=== PATIENT | male | born 1985 | race Caucasian/White ===

== ENCOUNTER 2018-04-26 11:20 | Inpatient (IN) | payer OTHER, MEDICAID, SELFPAY ==
[2018-04-26] VITALS (16 sets, daily range): BP systolic 91–139; BP diastolic 52–75; PULSE 75–118; RESP 12–24; TEMP 36.4–38.2; O2SAT 92–100; BMI 21.2
--- NOTE | 2018-04-26 11:45 | ED.SKABFB ---
HPI - Skin/Abscess/Foreign Bdy General Chief complaint: Skin/Abscess/Foreign Body Stated complaint: ABCESS ON L SIDE Time Seen by Provider: 04/26/18 11:33 Source: patient Mode of arrival: ambulatory Limitations: no limitations History of Present Illness HPI narrative: 32-year-old male, former smoker and IV drug abuser presents with rapidly worsening abscess in his left anterior elbow over the past few days. He now can no longer flex or extend and is complaining of low-grade fever as well as nausea. He last injected IV drugs a few weeks ago but it has smoked this morning. His last oral intake was about 5:00 a.m.. He denies nausea, vomiting or diarrhea MD complaint: abscess/boil Onset (ago): day(s) Tetanus up to date: yes Location: LUE Severity: moderate Quality: aching Pain Consistency: constant Relieving factors: rest Exacerbating factors: movement Context: IVDA Associated symptoms: chills Treatments prior to arrival: none Related Data Home Medications Medication Instructions Recorded Confirmed No Known Home Medications 04/26/18 04/26/18 Allergies Allergy/AdvReac Type Severity Reaction Status Date / Time No Known Drug Allergies Allergy Verified 04/26/18 11:30 Review of Systems Constitutional Denies chills, Denies fever(s), Denies lethargy and Denies weakness Eyes Denies change in vision, Denies eye discharge, Denies irritation and Denies loss of vision ENT Ears, Nose, Mouth, and Throat: Denies change in voice, Denies neck pain and Denies sore throat Cardiovascular Denies chest pain, Denies irregular heart rhythm, Denies lightheadedness, Denies palpitations, Denies dyspnea, Denies dyspnea on exertion and Denies orthopnea Respiratory Denies cough, Denies dyspnea, Denies dyspnea on exertion and Denies wheezing Gastrointestinal Gastrointestinal: Denies abdominal pain, Denies change in bowel habits, Denies diarrhea, Denies nausea and Denies vomiting Genitourinary Denies hematuria, Denies flank pain, Denies urinary incontinence and Denies urinary urgency Musculoskeletal Denies neck pain Integumentary/Breasts Denies pruritus, Reports erythema, Denies rash, Reports skin pain, Reports skin swelling and Denies wounds Neurologic Denies confusion, Denies loss of vision and Denies weakness Psychiatric Denies anxiety, Denies confusion, Denies depression, Denies homicidal ideation and Denies suicidal ideation Endocrine Denies palpitations Hematologic/Lymphatic Denies easy bruising Allergic/Immunologic Denies wheezing PFSH Social History Smoking Status: Former smoker Social History Smoking Status: Former smoker Exam Narrative Exam Narrative: GENERAL: 32-year-old male obviously uncomfortable complaining of left elbow pain HEAD: Atraumatic. Normocephalic. No temporal or scalp tenderness. EYES: Pupils equal round and reactive. Extraocular motions intact. No scleral icterus. No injection or drainage. ENT: Nose without bleeding, purulent drainage or septal hematoma. Throat without erythema, tonsillar hypertrophy or exudate. Uvula midline. Airway patent. NECK: Trachea midline. No JVD or lymphadenopathy. Supple, nontender, no meningeal signs. CARDIOVASCULAR: Regular rate and rhythm without murmurs, gallops, or rubs. RESPIRATORY: Clear to auscultation. Breath sounds equal bilaterally. No wheezes, rales, or rhonchi. GASTROINTESTINAL: Abdomen soft, non-tender, nondistended. No hepato-splenomegaly, or palpable masses. No guarding. EXTREMITIES: Large fluctuant mass in left antecubital fossa with significant surrounding erythema and swelling. Patient is unable to flex and extend at the elbow as well as pronate or supinate. BACK: Nontender without deformity or crepitance. No flank tenderness. NEURO: AOx3. SKIN: Significant erythema without obvious abscess in antecubital fossa Initial Vital Signs Initial Vital Signs: Vital Signs Temperature 98.4 F 04/26/18 11:27 Pulse Rate 118 H 04/26/18 11:27 Respiratory Rate 24 04/26/18 11:27 Blood Pressure 110/72 04/26/18 11:27 Pulse Oximetry 98 04/26/18 11:27 Course Orders Ordered: ED Orders 04/26/18 11:45 Complete Blood Count AUTO DIFF Stat Comprehensive Metabolic Panel Stat Lactate (Lactic Acid) Stat Procalcitonin Stat 04/26/18 12:14 Blood Culture Stat 04/26/18 14:24 MR elbow LT wo/w con Stat 04/26/18 14:50 Urine Microscopic Stat Hydromorphone HCl (Dilaudid) 1 mg IV Q3H PRN PRN Reason: Pain, Severe (7-10) Stop: 04/27/18 16:51 Last Admin: 04/26/18 16:57 Dose: 1 mg Sodium Chloride (Normal Saline 0.9%) 2,245.29 mls @ 748.43 mls/hr 30 ml/kg infuse over 3 hr (2245.29 ml) IV CONT ROWENA Last Infusion: 04/26/18 16:00 Dose: 0 mls/hr Admin: 04/26/18 12:12 Dose: 748.43 mls/hr Discontinued Medications Acetaminophen (Tylenol) 975 mg PO NOW ONE Stop: 04/26/18 16:11 Last Admin: 04/26/18 16:11 Dose: 975 mg Hydromorphone HCl (Dilaudid) 1 mg IV NOW ONE Stop: 04/26/18 15:59 Last Admin: 04/26/18 16:06 Dose: 1 mg Vancomycin HCl 1,500 mg/ (Sodium Chloride) 500 mls @ 333.333 mls/hr IV NOW ONE Stop: 04/26/18 11:38 Last Infusion: 04/26/18 13:50 Dose: 0 mls/hr Admin: 04/26/18 12:13 Dose: 333.333 mls/hr Ibuprofen (Advil) 800 mg PO NOW ONE Stop: 04/26/18 16:11 Last Admin: 04/26/18 16:11 Dose: 800 mg Consultations Consultation #1: Early call to Orthopedics whom recommend MRI to determine extent of infection. Upon receipt of MRI he is seen at the bedside by Orthopedics and consented for surgical incision and drainage Vital Signs - 8 hr 04/26/18 11:27 04/26/18 14:27 04/26/18 16:08 Temperature 98.4 F 100.7 F H Pulse Rate 118 H 102 H 110 H Respiratory Rate 24 18 18 Blood Pressure 110/72 Blood Pressure [Right Arm] 129/75 122/67 Pulse Oximetry 98 96 98 04/26/18 16:11 04/26/18 16:52 04/26/18 17:31 Temperature 100.7 F H 99.7 F H 99.7 F H Pulse Rate 110 H Respiratory Rate 14 Blood Pressure Blood Pressure [Right Arm] Pulse Oximetry 99 MDM - Skin/Abscess/Foreign Bdy Medical Records Attestation: I reviewed the patient's medical records. Lab Data Attestation: I reviewed the patient's lab results. Result diagrams: 04/26/18 11:45 04/26/18 11:45 Lab Results 04/26/18 04/26/18 04/26/18 Range/Units 11:45 11:45 11:45 WBC 8.5 (4.5-11.0) X10^3/uL RBC 3.79 L (4.5-5.9) X10^6/uL Hgb 10.6 L (13.5-17.5) g/dL Hct 31.0 L (41-53) % MCV 81.7 (80-100) fL MCH 27.8 (26-34) PG MCHC 34.1 (30-36) % RDW 13.7 (11.6-14.8) % Plt Count 285 (150-400) X10^3/uL Neut % (Auto) 70.4 (50-75) % Lymph % (Auto) 12.3 L (25-40) % Collin % (Auto) 14.9 H (3-14) % Eos % (Auto) 1.8 L (2-4) % Baso % (Auto) 0.6 (0-2) % Neut # (Auto) 6000 (3225-9507) /uL Lymph # (Auto) 1000 L (5995-8949) /uL Collin # (Auto) 1300 H (0-900) /uL Eos # (Auto) 200 (0-450) /uL Baso # (Auto) 100 (0-100) /uL Sodium 134 L (137-145) mmol/L Potassium 4.0 (3.4-5.1) mmol/L Chloride 98 (98-107) mmol/L Carbon Dioxide 27 (22-32) mmol/L BUN 15 (9-20) mg/dL Creatinine 0.80 (0.66-1.25) mg/dL Estimated GFR > 60.0 (>60) mL/min BUN/Creatinine Ratio 18.8 (6-22) Glucose 117 H (70-100) mg/dL Lactate (0.7-2.1) mmol/L Calcium 8.9 (8.4-10.2) mg/dL Total Bilirubin 0.3 (0.2-1.3) mg/dL AST 29 (17-59) IU/L ALT 44 (21-72) IU/L Alkaline Phosphatase 83 (38-126) U/L Total Protein 6.8 (6.3-8.2) g/dL Albumin 3.7 (3.5-5.0) g/dL Globulin 3.1 (1.7-4.1) g/dL Albumin/Globulin Ratio 1.2 (1.0-2.8) Procalcitonin 5.61 H (<0.5) ng/mL Urine RBC (0-5/HPF) Urine WBC (0-5/HPF) Ur Squamous Epith Cells Amorphous Sediment Urine Bacteria (None) Urine Mucus (Negative) Ur Culture Indicated? 04/26/18 04/26/18 Range/Units 11:45 14:50 WBC (4.5-11.0) X10^3/uL RBC (4.5-5.9) X10^6/uL Hgb (13.5-17.5) g/dL Hct (41-53) % MCV (80-100) fL MCH (26-34) PG MCHC (30-36) % RDW (11.6-14.8) % Plt Count (150-400) X10^3/uL Neut % (Auto) (50-75) % Lymph % (Auto) (25-40) % Collin % (Auto) (3-14) % Eos % (Auto) (2-4) % Baso % (Auto) (0-2) % Neut # (Auto) (3582-4383) /uL Lymph # (Auto) (8057-6222) /uL Collin # (Auto) (0-900) /uL Eos # (Auto) (0-450) /uL Baso # (Auto) (0-100) /uL Sodium (137-145) mmol/L Potassium (3.4-5.1) mmol/L Chloride (98-107) mmol/L Carbon Dioxide (22-32) mmol/L BUN (9-20) mg/dL Creatinine (0.66-1.25) mg/dL Estimated GFR (>60) mL/min BUN/Creatinine Ratio (6-22) Glucose (70-100) mg/dL Lactate 0.6 L (0.7-2.1) mmol/L Calcium (8.4-10.2) mg/dL Total Bilirubin (0.2-1.3) mg/dL AST (17-59) IU/L ALT (21-72) IU/L Alkaline Phosphatase (38-126) U/L Total Protein (6.3-8.2) g/dL Albumin (3.5-5.0) g/dL Globulin (1.7-4.1) g/dL Albumin/Globulin Ratio (1.0-2.8) Procalcitonin (<0.5) ng/mL Urine RBC 0-1/hpf (0-5/HPF) Urine WBC 0-1/hpf (0-5/HPF) Ur Squamous Epith Cells 0-1 /hpf Amorphous Sediment 3+ Urine Bacteria Few (2-10) H (None) Urine Mucus 1+ H (Negative) Ur Culture Indicated? Cult not indicated Urine Dip Bedside Urine Glucose Negative Bedside Urine Bilirubin - Negative Bedside Urine Ketone - Negative Urine Specific [place] 1.030 Bedside Urine Occult Blood - Negative Bedside Urine pH 6.0 Bedside Urine Protein +/- 15 Bedside Urine Urobilinogen +/- 1mg Bedside Urine Nitrite - Negative Bedside Urine Leukocytes - Negative Esterase Imaging Data MRI Elbow: Radiologist's impression: [place] [address] Magnetic Resonance Report Signed Patient: MAAME RAM JMR#: [id number] : 1985Acct:[id number] Age/Sex: 32 / MDate of Service: 04/26/18 Loc: ED Accession Number: [id number] Procedure: MR elbow LT wo/w con Ordering Provider: Timoteo rFitz D.O. PROCEDURE: MR ELBOW LT WO/W CON INDICATIONS: large abscess, pre op, per Ortho TECHNIQUE: Noncontrast coronal proton density fast spin echo and T2 fast spin echo with fat saturation, coronal T1 spin echo with fat saturation, axial and sagittal T1 spin echo and T2 fast spin echo with fat saturation through the elbow. Post-contrast coronal, axial, and sagittal T1 spin echo with fat saturation through the elbow. COMPARISON: None. FINDINGS: Image quality: Severe motion artifact despite multiple attempts. This is reportedly due to severe pain at the time of the examination. Marrow signal intensity appears within normal limits. No specific evidence of osteomyelitis is seen. No fracture line identified. There is anatomic alignment. There is a large multiloculated peripherally enhancing fluid collection, which measures 3.8 x 3.2 cm in cross-sectional dimension on axial image 16 series 11. This measures approximately 4.9 cm the cephalocaudad dimension on image 21 series 12. This finding is compatible with large abscess. This abuts the biceps and brachialis muscles as well as the brachial artery at the level of the distal humerus. No definite pathologic joint effusion. There is upper arm circumferential cellulitis and diffuse superficial fascial fluid. No definite evidence of soft tissue gas. IMPRESSION: Large multiloculated abscess involving the medial antecubital fossa. Diffuse upper arm subcutaneous cellulitis. No evidence of osteomyelitis. Dictated by: Arnoldo Bledsoe M.D. on 04/26/2018 at 15:29 Approved by: Arnoldo Bledsoe M.D. on 04/26/2018 at 15:39 Discharge Plan Departure Patient Disposition: Admitted as Observation Clinical Impression: Abscess, elbow Interventions: ED Discharge Assessment Last Done: 04/26/18 17:35 Admit Date/Time: 04/26/18 16:38 Admit Provider: Robert Wilkes
--- NOTE | 2018-04-26 11:52 | ED_ITS ---
HPI - Skin/Abscess/Foreign Bdy General Chief complaint: Skin/Abscess/Foreign Body Stated complaint: ABCESS ON L SIDE Time Seen by Provider: 04/26/18 11:33 Source: patient Mode of arrival: ambulatory Limitations: no limitations History of Present Illness HPI narrative: 32-year-old male, former smoker and IV drug abuser presents with rapidly worsening abscess in his left anterior elbow over the past few days. He now can no longer flex or extend and is complaining of low-grade fever as well as nausea. He last injected IV drugs a few weeks ago but it has smoked this morning. His last oral intake was about 5:00 a.m.. He denies nausea, vomiting or diarrhea MD complaint: abscess/boil Onset (ago): day(s) Tetanus up to date: yes Location: LUE Severity: moderate Quality: aching Pain Consistency: constant Relieving factors: rest Exacerbating factors: movement Context: IVDA Associated symptoms: chills Treatments prior to arrival: none Related Data Home Medications Medication Instructions Recorded Confirmed No Known Home Medications 04/26/18 04/26/18 Allergies Allergy/AdvReac Type Severity Reaction Status Date / Time No Known Drug Allergies Allergy Verified 04/26/18 11:30 Review of Systems Constitutional Denies chills, Denies fever(s), Denies lethargy and Denies weakness Eyes Denies change in vision, Denies eye discharge, Denies irritation and Denies loss of vision ENT Ears, Nose, Mouth, and Throat: Denies change in voice, Denies neck pain and Denies sore throat Cardiovascular Denies chest pain, Denies irregular heart rhythm, Denies lightheadedness, Denies palpitations, Denies dyspnea, Denies dyspnea on exertion and Denies orthopnea Respiratory Denies cough, Denies dyspnea, Denies dyspnea on exertion and Denies wheezing Gastrointestinal Gastrointestinal: Denies abdominal pain, Denies change in bowel habits, Denies diarrhea, Denies nausea and Denies vomiting Genitourinary Denies hematuria, Denies flank pain, Denies urinary incontinence and Denies urinary urgency Musculoskeletal Denies neck pain Integumentary/Breasts Denies pruritus, Reports erythema, Denies rash, Reports skin pain, Reports skin swelling and Denies wounds Neurologic Denies confusion, Denies loss of vision and Denies weakness Psychiatric Denies anxiety, Denies confusion, Denies depression, Denies homicidal ideation and Denies suicidal ideation Endocrine Denies palpitations Hematologic/Lymphatic Denies easy bruising Allergic/Immunologic Denies wheezing PFSH Social History Smoking Status: Former smoker Social History Smoking Status: Former smoker Exam Narrative Exam Narrative: GENERAL: 32-year-old male obviously uncomfortable complaining of left elbow pain HEAD: Atraumatic. Normocephalic. No temporal or scalp tenderness. EYES: Pupils equal round and reactive. Extraocular motions intact. No scleral icterus. No injection or drainage. ENT: Nose without bleeding, purulent drainage or septal hematoma. Throat without erythema, tonsillar hypertrophy or exudate. Uvula midline. Airway patent. NECK: Trachea midline. No JVD or lymphadenopathy. Supple, nontender, no meningeal signs. CARDIOVASCULAR: Regular rate and rhythm without murmurs, gallops, or rubs. RESPIRATORY: Clear to auscultation. Breath sounds equal bilaterally. No wheezes , rales, or rhonchi. GASTROINTESTINAL: Abdomen soft, non-tender, nondistended. No hepato-splenomegaly , or palpable masses. No guarding. EXTREMITIES: Large fluctuant mass in left antecubital fossa with significant surrounding erythema and swelling. Patient is unable to flex and extend at the elbow as well as pronate or supinate. BACK: Nontender without deformity or crepitance. No flank tenderness. NEURO: AOx3. SKIN: Significant erythema without obvious abscess in antecubital fossa Initial Vital Signs Initial Vital Signs: Vital Signs Temperature 98.4 F 04/26/18 11:27 Pulse Rate 118 H 04/26/18 11:27 Respiratory Rate 24 04/26/18 11:27 Blood Pressure 110/72 04/26/18 11:27 Pulse Oximetry 98 04/26/18 11:27 Course Orders Ordered: ED Orders 04/26/18 11:45 Complete Blood Count AUTO DIFF Stat Comprehensive Metabolic Panel Stat Lactate (Lactic Acid) Stat Procalcitonin Stat 04/26/18 12:14 Blood Culture Stat 04/26/18 14:24 MR elbow LT wo/w con Stat 04/26/18 14:50 Urine Microscopic Stat Hydromorphone HCl (Dilaudid) 1 mg IV Q3H PRN PRN Reason: Pain, Severe (7-10) Stop: 04/27/18 16:51 Last Admin: 04/26/18 16:57 Dose: 1 mg Sodium Chloride (Normal Saline 0.9%) 2,245.29 mls @ 748.43 mls/hr 30 ml/kg infuse over 3 hr (2245.29 ml) IV CONT ROWENA Last Infusion: 04/26/18 16:00 Dose: 0 mls/hr Admin: 04/26/18 12:12 Dose: 748.43 mls/hr Discontinued Medications Acetaminophen (Tylenol) 975 mg PO NOW ONE Stop: 04/26/18 16:11 Last Admin: 04/26/18 16:11 Dose: 975 mg Hydromorphone HCl (Dilaudid) 1 mg IV NOW ONE Stop: 04/26/18 15:59 Last Admin: 04/26/18 16:06 Dose: 1 mg Vancomycin HCl 1,500 mg/ (Sodium Chloride) 500 mls @ 333.333 mls/hr IV NOW ONE Stop: 04/26/18 11:38 Last Infusion: 04/26/18 13:50 Dose: 0 mls/hr Admin: 04/26/18 12:13 Dose: 333.333 mls/hr Ibuprofen (Advil) 800 mg PO NOW ONE Stop: 04/26/18 16:11 Last Admin: 04/26/18 16:11 Dose: 800 mg Consultations Consultation #1: Early call to Orthopedics whom recommend MRI to determine extent of infection. Upon receipt of MRI he is seen at the bedside by Orthopedics and consented for surgical incision and drainage Vital Signs - 8 hr 04/26/18 11:27 04/26/18 14:27 04/26/18 16:08 Temperature 98.4 F 100.7 F H Pulse Rate 118 H 102 H 110 H Respiratory Rate 24 18 18 Blood Pressure 110/72 Blood Pressure [Right Arm] 129/75 122/67 Pulse Oximetry 98 96 98 04/26/18 16:11 04/26/18 16:52 04/26/18 17:31 Temperature 100.7 F H 99.7 F H 99.7 F H Pulse Rate 110 H Respiratory Rate 14 Blood Pressure Blood Pressure [Right Arm] Pulse Oximetry 99 MDM - Skin/Abscess/Foreign Bdy Medical Records Attestation: I reviewed the patient's medical records. Lab Data Attestation: I reviewed the patient's lab results. Result diagrams: 04/26/18 11:45 04/26/18 11:45 Lab Results 04/26/18 04/26/18 04/26/18 Range/Units 11:45 11:45 11:45 WBC 8.5 (4.5-11.0) X10^3/uL RBC 3.79 L (4.5-5.9) X10^6/uL Hgb 10.6 L (13.5-17.5) g/dL Hct 31.0 L (41-53) % MCV 81.7 (80-100) fL MCH 27.8 (26-34) PG MCHC 34.1 (30-36) % RDW 13.7 (11.6-14.8) % Plt Count 285 (150-400) X10^3/uL Neut % (Auto) 70.4 (50-75) % Lymph % (Auto) 12.3 L (25-40) % [place] % (Auto) 14.9 H (3-14) % Eos % (Auto) 1.8 L (2-4) % Baso % (Auto) 0.6 (0-2) % Neut # (Auto) 6000 (7122-3931) /uL Lymph # (Auto) 1000 L (8710-0028) /uL [place] # (Auto) 1300 H (0-900) /uL Eos # (Auto) 200 (0-450) /uL Baso # (Auto) 100 (0-100) /uL Sodium 134 L (137-145) mmol/L Potassium 4.0 (3.4-5.1) mmol/L Chloride 98 (98-107) mmol/L Carbon Dioxide 27 (22-32) mmol/L BUN 15 (9-20) mg/dL Creatinine 0.80 (0.66-1.25) mg/dL Estimated GFR > 60.0 (>60) mL/min BUN/Creatinine Ratio 18.8 (6-22) Glucose 117 H (70-100) mg/dL Lactate (0.7-2.1) mmol/L Calcium 8.9 (8.4-10.2) mg/dL Total Bilirubin 0.3 (0.2-1.3) mg/dL AST 29 (17-59) IU/L ALT 44 (21-72) IU/L Alkaline Phosphatase 83 (38-126) U/L Total Protein 6.8 (6.3-8.2) g/dL Albumin 3.7 (3.5-5.0) g/dL Globulin 3.1 (1.7-4.1) g/dL Albumin/Globulin Ratio 1.2 (1.0-2.8) Procalcitonin 5.61 H (<0.5) ng/mL Urine RBC (0-5/HPF) Urine WBC (0-5/HPF) Ur Squamous Epith Cells Amorphous Sediment Urine Bacteria (None) Urine Mucus (Negative) Ur Culture Indicated? 04/26/18 04/26/18 Range/Units 11:45 14:50 WBC (4.5-11.0) X10^3/uL RBC (4.5-5.9) X10^6/uL Hgb (13.5-17.5) g/dL Hct (41-53) % MCV (80-100) fL MCH (26-34) PG MCHC (30-36) % RDW (11.6-14.8) % Plt Count (150-400) X10^3/uL Neut % (Auto) (50-75) % Lymph % (Auto) (25-40) % [place] % (Auto) (3-14) % Eos % (Auto) (2-4) % Baso % (Auto) (0-2) % Neut # (Auto) (5848-9800) /uL Lymph # (Auto) (0546-7540) /uL [place] # (Auto) (0-900) /uL Eos # (Auto) (0-450) /uL Baso # (Auto) (0-100) /uL Sodium (137-145) mmol/L Potassium (3.4-5.1) mmol/L Chloride (98-107) mmol/L Carbon Dioxide (22-32) mmol/L BUN (9-20) mg/dL Creatinine (0.66-1.25) mg/dL Estimated GFR (>60) mL/min BUN/Creatinine Ratio (6-22) Glucose (70-100) mg/dL Lactate 0.6 L (0.7-2.1) mmol/L Calcium (8.4-10.2) mg/dL Total Bilirubin (0.2-1.3) mg/dL AST (17-59) IU/L ALT (21-72) IU/L Alkaline Phosphatase (38-126) U/L Total Protein (6.3-8.2) g/dL Albumin (3.5-5.0) g/dL Globulin (1.7-4.1) g/dL Albumin/Globulin Ratio (1.0-2.8) Procalcitonin (<0.5) ng/mL Urine RBC 0-1/hpf (0-5/HPF) Urine WBC 0-1/hpf (0-5/HPF) Ur Squamous Epith Cells 0-1 /hpf Amorphous Sediment 3+ Urine Bacteria Few (2-10) H (None) Urine Mucus 1+ H (Negative) Ur Culture Indicated? Cult not indicated Urine Dip Bedside Urine Glucose Negative Bedside Urine Bilirubin - Negative Bedside Urine Ketone - Negative Urine Specific [place] 1.030 Bedside Urine Occult Blood - Negative Bedside Urine pH 6.0 Bedside Urine Protein +/- 15 Bedside Urine Urobilinogen +/- 1mg Bedside Urine Nitrite - Negative Bedside Urine Leukocytes - Negative Esterase Imaging Data MRI Elbow: Radiologist's impression: [place] [address] Magnetic Resonance Report Signed Patient: MAAME RAM JMR#: [id number] : 1985Acct:[id number] Age/Sex: 32 / MDate of Service: 04/26/18 Loc: ED Accession Number: [id number] Procedure: MR elbow LT wo/w con Ordering Provider: Timoteo Fritz D.O. PROCEDURE: MR ELBOW LT WO/W CON INDICATIONS: large abscess, pre op, per Ortho TECHNIQUE: Noncontrast coronal proton density fast spin echo and T2 fast spin echo with fat saturation, coronal T1 spin echo with fat saturation, axial and sagittal T1 spin echo and T2 fast spin echo with fat saturation through the elbow. Post-contrast coronal , axial, and sagittal T1 spin echo with fat saturation through the elbow. COMPARISON: None. FINDINGS: Image quality: Severe motion artifact despite multiple attempts. This is reportedly due to severe pain at the time of the examination. Marrow signal intensity appears within normal limits. No specific evidence of osteomyelitis is seen. No fracture line identified. There is anatomic alignment. There is a large multiloculated peripherally enhancing fluid collection, which measures 3.8 x 3.2 cm in cross-sectional dimension on axial image 16 series 11. This measures approximately 4.9 cm the cephalocaudad dimension on image 21 series 12. This finding is compatible with large abscess. This abuts the biceps and brachialis muscles as well as the brachial artery at the level of the distal humerus. No definite pathologic joint effusion. There is upper arm circumferential cellulitis and diffuse superficial fascial fluid. No definite evidence of soft tissue gas. IMPRESSION: Large multiloculated abscess involving the medial antecubital fossa. Diffuse upper arm subcutaneous cellulitis. No evidence of osteomyelitis. Dictated by: Arnoldo Bledsoe M.D. on 04/26/2018 at 15:29 Approved by: Arnoldo Bledsoe M.D. on 04/26/2018 at 15:39 Discharge Plan Departure Patient Disposition: Admitted as Observation Clinical Impression: Abscess, elbow Interventions: ED Discharge Assessment Last Done: 04/26/18 17:35 Admit Date/Time: 04/26/18 16:38 Admit Provider: Robert Wilkes
[2018-04-26 12:00] LABS: Add Manual Diff / Slide Review NO; Basophils Absolute Auto 100 /uL (0-100); Basophils Percent Auto 0.6 % (0-2); Eosinophils Absolute Auto 200 /uL (0-450); Eosinophils Percent Auto 1.8 % (2-4); Hemoglobin 10.6 g/dL (13.5-17.5); Lymphocytes Absolute Auto 1000 /uL (1100-4500); Lymphocytes Percent Auto 12.3 % (25-40); Mean Corpuscular HGB Conc 34.1 % (30-36); Mean Corpuscular Hemoglobin 27.8 PG (26-34); Mean Corpuscular Volume 81.7 fL (80-100); Monocytes Absolute Auto 1300 /uL (0-900); Monocytes Percent Auto 14.9 % (3-14); Neutrophils Absolute Auto 6000 /uL (1500-7000); Neutrophils Percent Auto 70.4 % (50-75); Platelet Count 285 X10^3/uL (150-400); Red Blood Cell Count 3.79 X10^6/uL (4.5-5.9); Red Cell Distribution Width 13.7 % (11.6-14.8); White Blood Cell Count 8.5 X10^3/uL (4.5-11.0)
[2018-04-26 12:11] LABS: Alanine Aminotransferase 44 IU/L (21-72); Albumin 3.7 g/dL (3.5-5.0); Albumin Globulin Ratio 1.2 (1.0-2.8); Alkaline Phosphatase 83 U/L (38-126); Aspartate Aminotransferase 29 IU/L (17-59); BUN Creatinine Ratio 18.8 (6-22); Bilirubin Total 0.3 mg/dL (0.2-1.3); Blood Urea Nitrogen 15 mg/dL (9-20); Calcium 8.9 mg/dL (8.4-10.2); Carbon Dioxide 27 mmol/L (22-32); Chloride 98 mmol/L (98-107); Estimated Glomerular Filt Rate > 60.0 mL/min (>60); Globulin 3.1 g/dL (1.7-4.1); Glucose 117 mg/dL (70-100); HEMOLYSIS < 15 (0-50); Lactate (Lactic Acid) 0.6 mmol/L (0.7-2.1); Sodium 134 mmol/L (137-145); Total Protein 6.8 g/dL (6.3-8.2)
[2018-04-26] MEDS: SODIUM CHLORIDE 0.9% 2,245.29 ML 748.43 ML IV (12:12)
[2018-04-26] MEDS: VANCOMYCIN 1,500 MG in SODIUM CHLORIDE 0.9% 500 ML 333.333 ML IV (12:13)
[2018-04-26 12:35] LABS: Procalcitonin 5.61 ng/mL (<0.5)
--- NOTE | 2018-04-26 14:24 | DI.MRI.S_ITS ---
PROCEDURE: MR ELBOW LT WO/W CON INDICATIONS: large abscess, pre op, per Ortho TECHNIQUE: Noncontrast coronal proton density fast spin echo and T2 fast spin echo with fat saturation, coronal T1 spin echo with fat saturation, axial and sagittal T1 spin echo and T2 fast spin echo with fat saturation through the elbow. Post-contrast coronal, axial, and sagittal T1 spin echo with fat saturation through the elbow. COMPARISON: None. FINDINGS: Image quality: Severe motion artifact despite multiple attempts. This is reportedly due to severe pain at the time of the examination. Marrow signal intensity appears within normal limits. No specific evidence of osteomyelitis is seen. No fracture line identified. There is anatomic alignment. There is a large multiloculated peripherally enhancing fluid collection, which measures 3.8 x 3.2 cm in cross-sectional dimension on axial image 16 series 11. This measures approximately 4.9 cm the cephalocaudad dimension on image 21 series 12. This finding is compatible with large abscess. This abuts the biceps and brachialis muscles as well as the brachial artery at the level of the distal humerus. No definite pathologic joint effusion. There is upper arm circumferential cellulitis and diffuse superficial fascial fluid. No definite evidence of soft tissue gas. IMPRESSION: Large multiloculated abscess involving the medial antecubital fossa. Diffuse upper arm subcutaneous cellulitis. No evidence of osteomyelitis. Dictated by: Arnoldo Bledsoe M.D. on 04/26/2018 at 15:29 Approved by: Arnoldo Bledsoe M.D. on 04/26/2018 at 15:39
[2018-04-26] MEDS: HYDROMORPHONE 1 MG INJ IV (16:06)
[2018-04-26 16:08] LABS: RBC Urine 0-1/HPF (0-5/HPF); Squamous Epithelial Cell Urine 0-1 /HPF; WBC Urine 0-1/HPF (0-5/HPF)
[2018-04-26 16:09] LABS: Amorphous Sediment Urine 3+; Bacteria Urine Few (2-10); Culture Indicated Urine Cult Not Indicated; Mucus Urine 1+ (Negative)
[2018-04-26] MEDS: IBUPROFEN 400 MG TABLET 800 MG PO (16:11)
[2018-04-26] MEDS: ACETAMINOPHEN 325 MG TABLET 975 MG PO (16:11)
--- NOTE | 2018-04-26 16:46 | PM.HP.1 ---
History of Present Illness Date Patient Seen: 04/26/18 Time Patient Seen: 16:46 Chief complaint: ABCESS ON L SIDE Narrative: 32-year-old male with left arm pain. He has a history of heroin addiction. He has occasionally injected heroin, the last time was about a month ago. Still using heroin but not IV, and reports that he is tapering back. About 2 weeks ago his left arm started bothering him and feeling sore. For the past 2 days it has been extremely painful and becoming more and more swollen. He finally came into the emergency room today. He denies fevers or chills. The pain is sharp and stabbing with any active flexion of the arm or any extension past 45?. He can passively flex the arm without difficulty. He lives in [place], but his father lives up here as well as his and son are here. Patient History Social History Smoking Status: Former smoker Family & Social History Safety & Behavioral: Feels Safe in Current Yes Environment Been Physically Hurt or No Threatened By a Person Tobacco & Substance use: Smoking Status Former smoker alcohol intake frequency 0-2 drinks per day Substance Use Type heroin,IV drugs Meds Home Medications Medication Instructions Recorded Confirmed Type No Known Home Medications 04/26/18 04/26/18 History Allergies Allergy/AdvReac Type Severity Reaction Status Date / Time No Known Drug Allergies Allergy Verified 04/26/18 11:30 Review of Systems Constitutional Constitutional: Denies chills and Denies fever(s) ENT Ears, Nose, Mouth, and Throat: No lip swelling Cardiovascular Cardiovascular: Denies chest pain Respiratory Respiratory: Denies cough Gastrointestinal Gastrointestinal: Denies abdominal pain Genitourinary Genitourinary: Denies difficulty urinating Neurologic Comments: tingling in L hand when laying in MRI, but no time else Hematologic/Lymphatic Hematologic/Lymphatic: Denies easy bleeding Allergic/Immunologic Allergic/Immunologic: Denies lip swelling Exam Vital Signs (past 8 hours): - 04/26/18 11:27 04/26/18 14:27 04/26/18 16:08 Temperature 98.4 F 100.7 F H Pulse Rate 118 H 102 H 110 H Respiratory Rate 24 18 18 Blood Pressure 110/72 Blood Pressure [Right Arm] 129/75 122/67 Pulse Oximetry 98 96 98 04/26/18 16:11 Temperature 100.7 F H Pulse Rate Respiratory Rate Blood Pressure Blood Pressure [Right Arm] Pulse Oximetry Oxygen Delivery Method Room Air Const Orientation: alert and oriented x3 Resp Auscultation: clear to auscultation bilaterally Cardio Rate: regular rate Rhythm: regular rhythm Extrem Other: Left elbow - 8 cm fluctuant mass along the medial antecubital space. Mild surrounding erythema. No tracking proximally or distally. Can passively flex the arm to 135? but cannot extend past the 45 degree point. 2+ distal pulses. Intact sensation to the entire arm. Objective ECG Impression: Imaging MRI left elbow: My impression: Large superficial abscess 10 cm in size in the medial aspect of the left antecubital fossa. No extension to the joint. Labs Result Diagrams: 04/26/18 11:45 04/26/18 11:45 Labs: Laboratory Results - last 24 hr 04/26/18 04/26/18 04/26/18 11:45 11:45 11:45 WBC 8.5 RBC 3.79 L Hgb 10.6 L Hct 31.0 L MCV 81.7 MCH 27.8 MCHC 34.1 RDW 13.7 Plt Count 285 Neut % (Auto) 70.4 Lymph % (Auto) 12.[address] [place] % (Auto) 14.9 H Eos % (Auto) 1.8 L Baso % (Auto) 0.6 Neut # (Auto) 6000 Lymph # (Auto) [address] [place] # (Auto) 1300 H Eos # (Auto) 200 Baso # (Auto) 100 Sodium 134 L Potassium 4.0 Chloride 98 Carbon Dioxide 27 BUN 15 Creatinine 0.80 Estimated GFR > 60.0 BUN/Creatinine Ratio 18.8 Glucose 117 H Lactate Calcium 8.9 Total Bilirubin 0.3 AST 29 ALT 44 Alkaline Phosphatase 83 Total Protein 6.8 Albumin 3.7 Globulin 3.1 Albumin/Globulin Ratio 1.2 Procalcitonin 5.61 H Urine RBC Urine WBC Ur Squamous Epith Cells Amorphous Sediment Urine Bacteria Urine Mucus Ur Culture Indicated? 04/26/18 04/26/18 11:45 14:50 WBC RBC Hgb Hct MCV MCH MCHC RDW Plt Count Neut % (Auto) Lymph % (Auto) [place] % (Auto) Eos % (Auto) Baso % (Auto) Neut # (Auto) Lymph # (Auto) [place] # (Auto) Eos # (Auto) Baso # (Auto) Sodium Potassium Chloride Carbon Dioxide BUN Creatinine Estimated GFR BUN/Creatinine Ratio Glucose Lactate 0.6 L Calcium Total Bilirubin AST ALT Alkaline Phosphatase Total Protein Albumin Globulin Albumin/Globulin Ratio Procalcitonin Urine RBC 0-1/hpf Urine WBC 0-1/hpf Ur Squamous Epith Cells 0-1 /hpf Amorphous Sediment 3+ Urine Bacteria Few (2-10) H Urine Mucus 1+ H Ur Culture Indicated? Cult not indicated Assessment & Plan Plan: Assessment/Plan Narrative: Left elbow abscess - he has a large abscess that will require surgical debridement. Risks and benefits of surgery been discussed including but not limited to medical risk with heart attack, stroke, , continued infection, bleeding, scarring, stiffness and elbow and contracture, failure to alleviate infection, need for further surgery. We will take him to the operating room tonight.
[2018-04-26] MEDS: HYDROMORPHONE 2 MG INJ 1 MG IV ×2 (16:57→19:10)
--- NOTE | 2018-04-26 17:04 | PC.NURSE ---
Redness, swelling well beyond area of abcess. + radial pulse. Last iv drug use 1 mo ago per pt report. Admits to 'foiling'/ inhalint use of opioids @ 3am.
--- NOTE | 2018-04-26 20:17 | PM.PREOP ---
Pre-operative Note Interval Note History & Physical reviewed/Exam performed by Physician: Yes Changes to H&P: No
--- NOTE | 2018-04-26 20:17 | PM.OP.1 ---
Operative Date/Time/Diagnoses Date of procedure: 04/26/18 Time of procedure: 21:05 Pre-op diagnosis: Left arm antecubital deep tissue abscess Post-op diagnosis: same Procedure & Clinicians Procedure: Irrigation debridement of deep abscess left antecubital space Same procedure as scheduled: Yes Indications: 32-year-old male with a large abscess in the left antecubital region. It is felt that he would require irrigation and debridement. Risks and benefits of surgery discussed and appropriate consent obtained. Surgeon: Robert Wilkes Click Yes if Unassisted: Yes Anesthesia Type: General Operative Notes Findings: None Closure Type: primary Specimen(s): other (Wound culture) Applied: drain(s) Estimated Blood Loss (mL): 20 Procedure in detail: Patient is brought the operating room and intubated on the table. Attention was turned to the well-marked left arm. Preoperative antibiotics with vancomycin had already been given in the emergency room earlier. The left arm was prepped and draped in standard sterile fashion. A 4 cm longitudinal incision was made in the medial antecubital space over the abscess. Copious amounts of purulent material were released. This was cultured and sent to microbiology. There was a large thrombosed vein crossing the field and this was left alone. We bluntly explored to make sure that there was no further tracking and this matched up with the MRI. We used a Garcia to debride the deep tissue down to the muscle for the incisional debridement. The wound was then copiously irrigated with pulsatile lavage. A deep drain was placed. The superficial and skin were closed. Sterile dressing was placed. He was then extubated and brought to recovery with no complications. Complications: none Condition: stable Disposition: PACU Plan for aftercare: Inpatient for several days of IV antibiotics. Will maintain on vancomycin for now and await cultures.
--- NOTE | 2018-04-26 21:12 | SUR.OPER ---
Supine on padded OR bed, head on pillow, Right arm secured on padded arm boards at <90 degrees abduction, Left arm on large padded armboard controlled by surgeon, legs uncrossed, safety belt at thigh.
[2018-04-26] MEDS: SODIUM CHLORIDE IRRIG SOLUTION 3,000 ML, GENTAMICIN 240 MG IRR (21:20)
[2018-04-26] MEDS: HYDROMORPHONE 2 MG INJ IV (21:58)
[2018-04-26] MEDS: LACTATED RINGERS 1,000 ML 125 ML IV (22:04)
[2018-04-26] MEDS: HYDROCODONE/ACET 5/325 TABLET 1 TAB PO (22:05)
[2018-04-27 00:01] VITALS: BMI 21.2
[2018-04-27] MEDS: VANCOMYCIN 1,250 MG in SODIUM CHLORIDE 0.9% 250 ML IV ×3 (00:15→15:46)
[2018-04-27] MEDS: HYDROMORPHONE 1 MG INJ 0.2 MG IV (01:04)
--- NOTE | 2018-04-27 02:08 | PC.NURSE ---
Admitted to room 215 from PACU 3-11 shift. Oriented to his room, spouse @ the bedside. Encouraged to call for assistance & needs. Spouse reported I'll take all his valuables home WiiW with me. Will cont. POC & monitor.
[2018-04-27] MEDS: HYDROCODONE/ACET 5/325 TABLET 2 TAB PO ×5 (02:27→20:21)
[2018-04-27 02:30] VITALS: BP 110/55; PULSE 96; RESP 16; TEMP 36.6; O2SAT 97
[2018-04-27] MEDS: LACTATED RINGERS 1,000 ML 125 ML IV ×2 (07:06→15:58)
[2018-04-27 07:13] LABS: Hematocrit 30.6 % (41-53); Hemoglobin 10.4 g/dL (13.5-17.5); Mean Corpuscular HGB Conc 33.9 % (30-36); Mean Corpuscular Hemoglobin 27.8 PG (26-34); Platelet Count 288 X10^3/uL (150-400); Red Blood Cell Count 3.73 X10^6/uL (4.5-5.9); Red Cell Distribution Width 13.6 % (11.6-14.8); White Blood Cell Count 6.4 X10^3/uL (4.5-11.0)
[2018-04-27 08:00] VITALS: BP 155/71; PULSE 80; RESP 16; TEMP 36.6; O2SAT 98
--- NOTE | 2018-04-27 08:19 | P.PN_ITS ---
Subjective Date Patient Seen: 04/27/18 Time Patient Seen: 08:18 Interval history: Arm is feeling better. Still painful at the elbow Exam Vital Signs (past 8 hours): - 04/27/18 02:30 Temperature 97.9 F Pulse Rate 96 H Respiratory Rate 16 Blood Pressure 110/55 L Pulse Oximetry 97 Oxygen Delivery Method Room Air Const Orientation: alert and oriented x3 Extrem Other: Left arm -dressing clean dry intact. Drain 30 mL output overnight. arm diameter about half of what it was preoperatively. Objective Labs Result Diagrams: 04/27/18 05:18 04/26/18 11:45 Labs: Laboratory Results - last 24 hr 04/26/18 04/26/18 04/26/18 11:45 11:45 11:45 WBC 8.5 RBC 3.79 L Hgb 10.6 L Hct 31.0 L MCV 81.7 MCH 27.8 MCHC 34.1 RDW 13.7 Plt Count 285 Neut % (Auto) 70.4 Lymph % (Auto) 12.3 L [place] % (Auto) 14.9 H Eos % (Auto) 1.8 L Baso % (Auto) 0.6 Neut # (Auto) 6000 Lymph # (Auto) 1000 L [place] # (Auto) 1300 H Eos # (Auto) 200 Baso # (Auto) 100 Sodium 134 L Potassium 4.0 Chloride 98 Carbon Dioxide 27 BUN 15 Creatinine 0.80 Estimated GFR > 60.0 BUN/Creatinine Ratio 18.8 Glucose 117 H Lactate Calcium 8.9 Total Bilirubin 0.3 AST 29 ALT 44 Alkaline Phosphatase 83 Total Protein 6.8 Albumin 3.7 Globulin 3.1 Albumin/Globulin Ratio 1.2 Procalcitonin 5.61 H Urine RBC Urine WBC Ur Squamous Epith Cells Amorphous Sediment Urine Bacteria Urine Mucus Ur Culture Indicated? 04/26/18 04/26/18 04/27/18 11:45 14:50 05:18 WBC 6.4 RBC 3.73 L Hgb 10.4 L Hct 30.6 L MCV 82.0 MCH 27.8 MCHC 33.9 RDW 13.6 Plt Count 288 Neut % (Auto) Lymph % (Auto) [place] % (Auto) Eos % (Auto) Baso % (Auto) Neut # (Auto) Lymph # (Auto) [place] # (Auto) Eos # (Auto) Baso # (Auto) Sodium Potassium Chloride Carbon Dioxide BUN Creatinine Estimated GFR BUN/Creatinine Ratio Glucose Lactate 0.6 L Calcium Total Bilirubin AST ALT Alkaline Phosphatase Total Protein Albumin Globulin Albumin/Globulin Ratio Procalcitonin Urine RBC 0-1/hpf Urine WBC 0-1/hpf Ur Squamous Epith Cells 0-1 /hpf Amorphous Sediment 3+ Urine Bacteria Few (2-10) H Urine Mucus 1+ H Ur Culture Indicated? Cult not indicated Assessment & Plan Post-op Postoperative Procedures Operation Date: 04/26/18 20:00 Actual Procedures Side Surgeon p Incision and Drainage Wound/Extremity Robert Wilkes MD stable after irrigation debridement of the left arm abscess. He has gram-positive cocci and Gram-positive rods on the Gram stain. Awaiting culture results will continue on vancomycin for now. Quality VTE Deep Vein Thrombosis/Pulmonary Embolism Present on Admission: No
[2018-04-27] MEDS: DOCUSATE 100 MG CAPSULE PO ×2 (09:39→20:21)
[2018-04-27] MEDS: KETOROLAC 30 MG/ML VIAL IV ×2 (09:44→16:36)
--- NOTE | 2018-04-27 11:31 | PT.IIE ---
Current Diagnoses Cutaneous abscess of limb, unspecified (04/26/18) Surgery Performed Operation Date: 04/26/18 20:00 Actual Procedures p Incision and Drainage Wound/Extremity - Robert Wilkes MD Physical Therapy Inpatient Evaluation/Re-Eval M1 PT/OT-IP Prior Functional Status Start: 04/27/18 11:04 Freq: NEEDED Status: Active Protocol: Document 04/27/18 10:05 (Rec: 04/27/18 11:31 [email or web address]) Medical Review Prior Functional Status Medical History Reviewed Yes Diet/Fluid Consistency Regular Communication No communication deficits noted Mobility and Gait Pt was independent at home and community without using AD Activities of Daily Living and IADL's Pt was independent for all ADLs and IADLs Social History Household Members spouse family children Living Arrangements House Number of Floors (Floors) Two Floors Number of Stairs To Enter/Railing? 1STE without rails; 15steps inside of the house with L rail Home Environment Standard Height Toilet Tub/Shower Employment Status Self-Employed Additional Social History Comment Pt lives with his and son in a 2 story home in [place]. They primarily stays on main floor, second floor has a playroom only. Pt has a history of heroin addiction. He has occasionally injected heroin, the last time was about a month ago. 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 M2 PT-IP Current Condition Start: 04/27/18 11:04 Freq: NEEDED Status: Active Protocol: Document 04/27/18 10:05 (Rec: 04/27/18 11:31 [email or web address]) Physical Therapy Current Condition Current Condition Evaluation Date 04/27/18 Treatment Diagnosis Post op irrigation debridement for large abscess on L arm Onset Date 2 weeks ago Precautions Other Precautions Contact precaution M3 PT-IP Subjective Start: 04/27/18 11:04 Freq: NEEDED Status: Active Protocol: Document 04/27/18 10:05 (Rec: 04/27/18 11:31 [email or web address]) Subjective Physical Therapy Visit Type Type Initial Evaluation Visit Start Time 10:05 Visit Stop Time 10:25 Total Visit Minutes 20 Notes Pt is now on antibiotic. Per RN, there's no restrictions for his elbow from Number of GLASS LOADING EQUIPMENT TENDER Visits 0 Physical Therapy Visit Comments Patient Comments Pt agreeable to mobilize with PT Patient Goals To return home with his to return to work Therapy Pain Assessment Pain When Pain Assessed At Rest Pain Present Pain Present Pain Reported Location L arm Intensity 4 Scale Used Numeric (1 - 10) Description Dull Pain Management Techniques Apply Cold Timing of Activity with Medications M4 PT-IP Mobility and Gait Start: 04/27/18 11:04 Freq: NEEDED Status: Active Protocol: Document 04/27/18 10:05 (Rec: 04/27/18 11:31 [email or web address]) PT-Bed Mobility Assessment Supine to Sit Supine to Sit Independent Sit to Supine Sit to Supine Independent Scooting Scooting to Edge of Bed Independent Scooting Up and Down in Bed Independent PT-Transfer Assessment Sit to and From Stand Sit to and from Stand Independent Equipment Transfer Assistive Device Gait Belt Transfers Transfer Destination Bed Toilet Transfer Technique Stand Step Pivot Transfer Ability Level of Assist Independent Comments Mobility Comments Pt was in bed upon assessment. Pt was then transferred himself from supine to stand without assistance. He then went to bathroom for toileting under supervision. Pt was able to manage IV pole and lines while turning. Pt did not show signs of LOB and acute distress. Gait Assessment Gait Gait Assistance Required: Standby Assistance Distance (Feet) 300 Able to Maintain Weight Bearing Status Yes During Gait Assistive Devices Assistive Device None Gait Belt Gait Deviations General Gait Pattern Antalgic Factors Limiting Gait Function Factors Limiting Gait Function Pain Comments Gait Comments Pt amb from EOB to hallway for approx 300 feet SBA without AD. Pt did show slight L antalgic gait but he states he walked the same way for the past few months and he does know why. Pt presented a very steady gait without signs of LOB and acute distress. Stair Climbing Assessment Evaluation Level of Assist On Stairs Standby Assistance Devices Stair Climbing Assistive Devices Left Railing Technique/Endurance Stair Climbing Direction Ascend and Descend Stair Climbing Technique Step Over Step Number of Steps Climbed 3 Query Text: Stair Climbing Set # Repetitions (reps) 4 Comments Stair Climbing Comments no signs of LOB PT-Balance Assessment Sitting Balance and Reactions Static Sitting Balance Ability Normal Dynamic Sitting Balance Ability Normal Standing Balance and Reactions Static Standing Balance Ability Normal Dynamic Standing Balance Ability Normal M5 PT-IP Objective Assessments Start: 04/27/18 11:04 Freq: NEEDED Status: Active Protocol: Document 04/27/18 10:05 (Rec: 04/27/18 11:31 [email or web address]) Orientation Orientation/Cognition Level of Alertness Alert Orientation Name Age Birthday Month Date Year Day of Week Place Situation Language Function Ability No Deficits Noted Safety Awareness Understands Safety Issues Memory Description No Deficits Noted Gross Range of Motion Upper Extremity ROM Assessment Left Impaired Impairments able to fully extend from 40 degrees able to supinate and pronate 50% Lower Extremity ROM Assessment Within Functional Limits Strength Upper Extremity Strength Assessment Left Impaired Elbow 3/5 Comments Strength Comments Pt has his L elbow wrapped with yao wrap upon assessment. Slight edema at L wrist and proximal elbow Coordination Assessment Gross Coordination Gross Coordination WNL Sensation Assessment Sensation Gross Sensation Left UE Impaired Light Touch Impaired Proprioception (Position) Impaired Sensation Description Numbness Pain Comments Sensation Comments Pt states he feels slightly numb at his L hand Muscle Tone Muscle Tone WNL Yes M6 PT-IP Treatment Start: 04/27/18 11:04 Freq: NEEDED Status: Active Protocol: Document 04/27/18 10:05 (Rec: 04/27/18 11:31 [email or web address]) Physical Therapy Treatment Education Education Provided Precautions Safety M7 PT-IP Assessment and Plan Start: 04/27/18 11:04 Freq: NEEDED Status: Active Protocol: Document 04/27/18 10:05 (Rec: 04/27/18 11:31 [email or web address]) PT Summary Assessment and Plan Potential Rehabilitation Potential Excellent Status of Condition at Evaluation Evolving Summary Impairments Pain ROM Sensation Assessment Summary Pt is 32 yo male admitted to for irrigation debridement on his L arm large abscess who has a hx of heroin addiction. Pt is now post op day 1. Upon assessment, pt presented baseline mobility for functional activities without using AD. Pt demonstrated steady gait and no signs of LOB and acute distress. Pt also states Im able to rotate my arm and extend my elbow today which i was not able to for the past 2 weeks. But i do feel a bit numb on my L hand today. In my professional opinion, pt will be able to d/ c home once pt's surgical site is medically stable (Pt currently on antibiotics ). Frequency of Treatment Frequency Of Treatment Discharge Recommendations To Nursing Amount of Assist Needed Independent Discharge Recommendations PT Discharge Recommendations Home
[2018-04-27 12:00] VITALS: BP 118/82; PULSE 79; RESP 18; TEMP 36.6; O2SAT 99
--- NOTE | 2018-04-27 15:12 | CM.IDA ---
Addendum entered by Ena Gee, CONCRETE WALL GRINDER OPERATOR 04/29/18 14:59: Offered pocket book size [employer] and highlighted [facility]'s Medicaid access line. Also highlighted [facility]. DC likely Wednesday, home w/po abx per RN Lisa. JW Original Note: DCP Assessment Note: Reviewed chart. Met w/pt, explained SW role. Pt very pleasant and forthcoming throughout our conversation. Pt lives w/his in [place]. He is self employed and he and his do not have insurance. Pt says someone here at will f/u w/him re: [email or web address]. Pt explains his 6 yo son was taken into temporary custody 8 months ago by CPS, placed into the home of pt's father in law here in [place]. Pt says he and his are required to submit urine tests weekly (or monthly?) and they failed one and son was removed from their home. Pt admits to IVDU one month ago and since that time, he and his snort heroin once weekly approx 10 dollars worth. Pt says he has struggled with heroin and meth use on and off since early twenties. He had been sober for many years until he started using again approx 2 years ago. He and his met in clean and sober housing years before the of their son. Discussed prior treatment, counseling, and efforts to remain sober. 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 Pt wonders if a counselor would be helpful for him d/t childhood trauma. Strongly encouraged pt to get his Medicaid in place and call MH/Medicaid access line through [facility] to establish with ongoing close outpt counseling and possibly medication assisted treatment. Pt says he has tried suboxone in the past but it was harder to get off than the heroin. This CONCRETE WALL GRINDER OPERATOR suggested pt consider asking a counselor about anti-depressants, anti-anxiety and pt agrees this might help. Pt hopes to have full custody of his son again soon and will likely be in the [place] area for awhile attending court dates/legal steps w/ CPS. Pt aware culture results pending which will assist in determining next steps in medical POC and DCP. This CONCRETE WALL GRINDER OPERATOR following closely and will plan to provide pt w/Medicaid MH access line. Will also discuss substance abuse specific resources in this area like [facility], [facility], [place], [facility]. Following closely. DANNIELLE Negron Discharge Planning/Care Management CM Discharge Assessment Start: 04/27/18 15:03 Freq: Status: Active Protocol: Document 04/27/18 15:03 CLAIRE (Rec: 04/27/18 15:11 CLAIRE [id number]) Discharge Planning Assessment Assigned Dispatcher Chief Oil DANNIELLE Paulson DPOA/Assigned Designee Name Janet Lynch, spouse Contact Information [phone] Advance Directives? No Advance Directives on File No History Provided By Patient Prior Living Arrangements House Household Members spouse family children Type of transportation used prior to Drives own vehicle admit Independent with ADL's Yes Is patient alert and oriented? Yes Barriers to Discharge Yes Comment H/O IVDU, current heroin use weekly. Cultures pending. Insurance pending. Additional Comment Following closely as medical POC unfolds. Whiteboard Updated in Patient Room with Yes name and ext. # of Dispatcher Chief Oil Review Status In Process
[2018-04-27 16:04] VITALS: BP 149/59; PULSE 85; RESP 16; TEMP 36.4; O2SAT 100
[2018-04-27 19:16] VITALS: BP 134/89; PULSE 93; RESP 16; TEMP 36.7; O2SAT 97
[2018-04-27] MEDS: MAGNESIUM HYDROXIDE 30 ML UDC PO (20:21)
[2018-04-28 01:08] LABS: Vancomycin Trough 8.3 ug/mL (10-20)
[2018-04-28 01:15] VITALS: BP 108/61; PULSE 88; RESP 16; TEMP 36.6; O2SAT 96
[2018-04-28] MEDS: VANCOMYCIN 1,250 MG in SODIUM CHLORIDE 0.9% 250 ML IV (01:16)
[2018-04-28] MEDS: VANCOMYCIN TROUGH 1 REQUEST MISC (01:21)
[2018-04-28 03:23] VITALS: BP 103/57; PULSE 79; RESP 16; TEMP 36.3; O2SAT 98
--- NOTE | 2018-04-28 04:33 | PC.NURSE ---
Director Of Corporate Sales Note: 0030: Vanco trough drawn and sent. Dose held pending results. IV in place in rt forearm with LR infusing at 125cc/hr. Dressing to lt arm is cdi, with yao wrap intact and clean over dressing; TERESA intact and compressed, with small amount serosanguinous drainage. Sig. other is at bedside.
[2018-04-28] MEDS: HYDROCODONE/ACET 5/325 TABLET 2 TAB PO ×3 (09:00→20:37)
[2018-04-28 09:22] VITALS: BP 118/69; PULSE 74; RESP 18; TEMP 36.4; O2SAT 100
[2018-04-28] MEDS: DOCUSATE 100 MG CAPSULE PO ×2 (10:35→20:38)
[2018-04-28] MEDS: VANCOMYCIN 1,500 MG in SODIUM CHLORIDE 0.9% 500 ML IV (10:36)
[2018-04-28] MEDS: KETOROLAC 30 MG/ML VIAL IV ×2 (10:47→17:52)
--- NOTE | 2018-04-28 10:51 | PM.PNPO.1 ---
Subjective Date Patient Seen: 04/28/18 Time Patient Seen: 10:51 Interval history: Feeling better today Exam Vital Signs (past 8 hours): - 04/28/18 03:23 04/28/18 09:22 Temperature 97.3 F L 97.6 F Pulse Rate 79 74 Respiratory Rate 16 18 Blood Pressure 103/57 L 118/69 Pulse Oximetry 98 100 Oxygen Delivery Method Room Air Const Orientation: alert and oriented x3 Extrem Other: Dressing changed this morning with a little bit of drainage on the dressing. 10 cc output from the drain last shift Objective Labs Result Diagrams: 04/27/18 05:18 04/26/18 11:45 Labs: Laboratory Results - last 24 hr 04/28/18 00:30 Vancomycin Trough 8.3 L cultures growing but too early to determine Assessment & Plan Post-op Postoperative Procedures Operation Date: 04/26/18 20:00 Actual Procedures Side Surgeon p Incision and Drainage Wound/Extremity Robert Wilkes MD Continue with IV antibiotics. Wait for cultures and final sensitivities. Probably discharge the drain tomorrow if it dries up Quality VTE Deep Vein Thrombosis/Pulmonary Embolism Present on Admission: No
[2018-04-28 13:35] VITALS: BP 152/80; PULSE 97; RESP 18; TEMP 36.5; O2SAT 100
[2018-04-28 15:59] VITALS: BP 136/76; PULSE 83; RESP 16; TEMP 36.7; O2SAT 98
[2018-04-28] MEDS: VANCOMYCIN 1,500 MG in SODIUM CHLORIDE 0.9% 500 ML 300 ML IV (17:53)
[2018-04-28 19:12] VITALS: BP 121/69; PULSE 82; RESP 16; TEMP 36.4; O2SAT 100
[2018-04-29] VITALS: BP 141/50; PULSE 98; RESP 18; TEMP 36.4; O2SAT 99
[2018-04-29] MEDS: HYDROCODONE/ACET 5/325 TABLET 2 TAB PO ×4 (00:16→20:22)
--- NOTE | 2018-04-29 01:54 | PC.NURSE ---
Addendum entered by Jose Alfredo Jackson R.N. 04/29/18 03:15: 0300: Dressing to lt elbow found falling off. Dressing changed with telfa over incision and Kirlex roll, with coban over Kirlex. No drainage or redness noted at incision or TERESA insertion site. Original Note: Minister Assistant Note: 0030: Awake, resting in bed with lt arm elevated on pillows. Vital signs stable. Dressing to lt arm intact, with TERESA drain intact and compressed. Small amt serosanguinous drainage in TERESA. IV in place in rt forearm. at bedside. Pt having pain in lt elbow: medicated with 2 Vicodin.
[2018-04-29] MEDS: VANCOMYCIN 1,500 MG in SODIUM CHLORIDE 0.9% 500 ML 300 ML IV (02:47)
[2018-04-29 04:42] VITALS: BP 113/60; PULSE 95; RESP 18; TEMP 36.4; O2SAT 98
--- NOTE | 2018-04-29 09:08 | P.PN_ITS ---
Subjective Date Patient Seen: 04/29/18 Time Patient Seen: 09:05 Interval history: Hospital day 4, postop day 3 following left elbow antecubital abscess I and D by Dr. Wilkes. Patient states he is feeling better today. Still has drain in place with 30 mL drainage in the last 24 hr. Wound culture is still pending. Blood cultures negative x2. He is on IV vancomycin. He is taking [place] 5/325 mg 2 tabs q.4h. Exam Vital Signs (past 8 hours): - 04/29/18 04:42 Temperature 97.5 F L Pulse Rate 95 H Respiratory Rate 18 Blood Pressure 113/60 Pulse Oximetry 98 Oxygen Delivery Method Room Air Oxygen Flow Rate 0 Narrative Exam Narrative: Left arm. Dressing to the elbow area is dry without drainage or inflammation. Small amount of serous drainage noted in the Hemovac. Inspector And Mender is strong. Good pulses and sensation and. Objective Labs Result Diagrams: 04/27/18 05:18 04/26/18 11:45 Assessment & Plan Post-op Postoperative Procedures Operation Date: 04/26/18 20:00 Actual Procedures Side Surgeon p Incision and Drainage Wound/Extremity MD Dr. Chung Luther would like to have less than 20 mL drainage and his Hemovac per shift before DC drain. Will keep the drain in today. Waiting on final culture results to determine post hospital antibiotic. Quality VTE Deep Vein Thrombosis/Pulmonary Embolism Present on Admission: No
[2018-04-29 09:45] VITALS: BP 127/69; PULSE 112; RESP 18; TEMP 36.4; O2SAT 99
[2018-04-29 10:06] LABS: Vancomycin Trough 18.4 ug/mL (10-20)
[2018-04-29] MEDS: DOCUSATE 100 MG CAPSULE PO ×2 (10:27→20:19)
[2018-04-29] MEDS: VANCOMYCIN 1,500 MG in SODIUM CHLORIDE 0.9% 500 ML 250 ML IV (10:27)
[2018-04-29] MEDS: VANCOMYCIN TROUGH 1 REQUEST MISC (10:27)
[2018-04-29 13:45] VITALS: BP 118/64; PULSE 81; RESP 18; TEMP 36.7; O2SAT 97
--- NOTE | 2018-04-29 13:45 | PM.PNPO.1 ---
Subjective Date Patient Seen: 04/29/18 Time Patient Seen: 13:45 Interval history: He is doing well. Exam Vital Signs (past 8 hours): - 04/29/18 09:45 Temperature 97.6 F Pulse Rate 112 H Respiratory Rate 18 Blood Pressure 127/69 Pulse Oximetry 99 Oxygen Delivery Method Room Air Oxygen Flow Rate 0 Extrem Other: Swelling and arm decreasing. 10 mL over the last shift at output from drain Objective Labs Result Diagrams: 04/27/18 05:18 04/26/18 11:45 Labs: Laboratory Results - last 24 hr 04/29/18 09:36 Vancomycin Trough 18.4 Cultures growing strep hemolytic sensitivities pending tomorrow Assessment & Plan Post-op Postoperative Procedures Operation Date: 04/26/18 20:00 Actual Procedures Side Surgeon p Incision and Drainage Wound/Extremity Robert Wilkes MD can come off MRSA precautions. Continue IV antibiotics through tomorrow and weight sensitivities and discharge home on oral antibiotics. Probably discharge drain tomorrow. Quality VTE Deep Vein Thrombosis/Pulmonary Embolism Present on Admission: No
[2018-04-29 16:00] VITALS: BP 122/76; PULSE 83; RESP 20; TEMP 37; O2SAT 98
[2018-04-29] MEDS: VANCOMYCIN 1,500 MG in SODIUM CHLORIDE 0.9% 500 ML IV (17:49)
[2018-04-29 20:00] VITALS: BP 146/66; PULSE 96; RESP 20; TEMP 36.5; O2SAT 146
[2018-04-30 00:15] VITALS: BP 120/85; PULSE 89; RESP 16; TEMP 36.6; O2SAT 100
[2018-04-30] MEDS: HYDROCODONE/ACET 5/325 TABLET 2 TAB PO ×3 (00:37→13:33)
--- NOTE | 2018-04-30 01:05 | PC.NURSE ---
Patient is alert and oriented. Breath sounds CTA with RA sat of 99%. HRR. Denies nausea. BT present and abdomen is soft. Denies dysuria, frequency or urgency. Independent with mobility. Dressing to left elbow is CDI; TERESA is compressed and intact with serosanguinous drainage noted in bulb. Refusing SCD's. States pain is 4/10 so medicated with Vicodin. Fall risk score is low.
[2018-04-30] MEDS: VANCOMYCIN 1,500 MG in SODIUM CHLORIDE 0.9% 500 ML IV (02:09)
[2018-04-30] MEDS: SODIUM CHLORIDE 0.9% FLUSH 10 ML IV ×2 (02:09→08:26)
[2018-04-30] MEDS: DOCUSATE 100 MG CAPSULE PO (08:23)
[2018-04-30 09:00] VITALS: BP 124/65; PULSE 86; RESP 16; TEMP 36.4; O2SAT 98
--- NOTE | 2018-04-30 09:41 | PM.DS.1 ---
History of Present Illness Date Patient Seen: 04/30/18 Time Patient Seen: 09:41 Chief complaint: ABCESS ON L SIDE Narrative: Hospital day 5, postop day 4 following left elbow abscess I and D by Dr. Wilkes. Patient had been receiving IV vancomycin. Culture notes heavy growth Strep mitis/Strep oralis. Sensitive at all except erythromycin and tetracycline. Hemovac drain notes 5-10 mL per shift. Patient progressing well. Discharge Providers Date of admission: 04/26/18 16:38 Consults: 04/26/18 21:46 Consult to Discharge Planning Routine Comment: Consult to Physical Therapy Evaluate & Treat Comment: Physician Instructions: Evaluate and Treat Consult to Respiratory Therapy Evaluate & Treat Comment: Physician Instructions: Evaluate and treat Discharge provider: Dez Tucker PA-C Discharge Date: 04/30/18 Summary Discharge Diagnosis: Status post left elbow abscess I and D Hospital Course: Patient brought to hospital on 04/26/2018 for above noted surgery. He remained stable postoperatively. Treated with IV vancomycin until culture results are final. Patient was changed to oral antibiotic on postop day 4 and discharged home. Status at Discharge Cognitive/behavioral status at discharge: Alert, oriented no acute distress. Functional status at discharge: independent ambulation Overall status at discharge: patient is back to baseline Time Spent with Patient Less than 30 minutes Exam Vital Signs (past 8 hours): - 04/30/18 09:00 Temperature 97.6 F Pulse Rate 86 Respiratory Rate 16 Blood Pressure 124/65 Pulse Oximetry 98 Oxygen Delivery Method Room Air Oxygen Flow Rate 0 Narrative Exam Narrative: Left arm. Dressing intact without drainage or inflammation. Hemovac in place with minimal drainage. Good pulses and sensation to the hand. Good ROM of elbow. Objective Labs Result Diagrams: 04/27/18 05:18 04/26/18 11:45 Labs: Laboratory Results - last 24 hr 04/29/18 09:36 Vancomycin Trough 18.4 Discharge Plan Discharge Plan Discharge Problem: Abscess, elbow Patient Disposition: Home Discharge Med Rec/Prescriptions Prescriptions: New hydrocodone-acetaminophen 5-325 mg Tablet 1 tab PO Q4H PRN (Reason: Pain, Mild (1-3)) Qty: 15 RF: 0 amoxicillin 500 mg tablet 500 mg PO QID Qty: 60 RF: 0 No Action No Known Home Medications RF: 0 Follow up/Referrals: Robert Wilkes MD [Physician] - (Follow up with Dr. Wilkes in 10-14 days.) Provider Discharge Instructions Diet: Diet as Tolerated Activity: Ovoid forceful use of left arm. Skin/Wound/Dressing Care Report to your healthcare provider any signs of infection, such as:: chills, fever, night sweats, increased pain, unusual drainage and unusual redness Dressing: Keep elbow dressing clean and dry. Discharge Data Attending Provider: Robert Wilkes Admit Date/Time: 04/26/18 16:38 Quality VTE Deep Vein Thrombosis/Pulmonary Embolism Present on Admission: No
--- NOTE | 2018-04-30 13:45 | CM.DPC ---
DCP Discharge Home Per Ortho PA, pt's drain has been discontinued and IV now d/c and pt switching to oral meds and pt is medically stable to d/c home with no identified discharge planning needs. Previous SW already provided pt with community resources. Plan: Patient to d/c home today via POV on oral medications and community resources provided. No further SW needs at this time. DANNIELLE Archuleta
== END 2018-04-30 13:50 | disposition home or self-care (01) | DRG 383 ==
LOC: ED 16:20 → AC 16:55
PROVIDERS: Admitting Provider Orthopaedic Surgery; Emergency Provider Emergency Medicine; Visit Provider Orthopaedic Surgery
PROC: 0JBH0ZZ Excision of Left Lower Arm Subcutaneous Tissue and Fascia, Open Approach (ICD-10-PCS; principal; 2018-04-26 20:00)
DX: L02.414 Cutaneous abscess of left upper limb (principal); F11.20 Opioid dependence, uncomplicated; Z87.891 Personal history of nicotine dependence; B95.4 Other streptococcus as the cause of diseases classified elsewhere
CPT/HCPCS: 36415; 36591; 73223; 80053; 80202; 81003; 81015; 83605; 84145; 85025; 85027; 87040; 87070; 87075; 87077; 87186; 87205; 96361; 96365; 96366; 96375; 97161; 97530; 99284; A9579; J1170; J1885; J2405; J2704

== ENCOUNTER 2018-06-10 22:19 | Inpatient (IN) | payer OTHER, MEDICAID, SELFPAY ==
[2018-06-10 23:02] VITALS: BP 100/63; PULSE 139; RESP 16; TEMP 37.7; O2SAT 100; BMI 19.2
[2018-06-10 23:20] VITALS: TEMP 38.5
[2018-06-10 23:25] LABS: Bacteria Urine None Seen
[2018-06-10 23:36] VITALS: BP 91/45; PULSE 125; RESP 15; O2SAT 99
--- NOTE | 2018-06-10 23:37 | DI.RAD.S_ITS ---
PROCEDURE: XR CHEST 1V INDICATIONS: suspected sepsis TECHNIQUE: One view of the chest was acquired. COMPARISON: None. FINDINGS: Surgical changes and devices: None. Lungs and pleura: There is infiltrate and consolidation in the left upper lobe. No pleural effusions or pneumothorax. Mediastinum: Mediastinal contours appear normal. Heart size is normal. Bones and chest wall: No suspicious bony lesions. Overlying soft tissues appear unremarkable. IMPRESSION: Left upper lobe pneumonia. Dictated by: Alex Adams M.D. on 06/11/2018 at 9:35 Approved by: Alex Adams M.D. on 06/11/2018 at 9:40
[2018-06-10 23:39] LABS: RBC Urine 1-5/HPF (0-5/HPF); Squamous Epithelial Cell Urine None Seen; WBC Urine 1-5/HPF (0-5/HPF)
[2018-06-10 23:40] LABS: Culture Indicated Urine Specimen Cultured
[2018-06-10 23:43] LABS: Influenza A and B by PCR Rapid Negative (Negative)
[2018-06-10] MEDS: SODIUM CHLORIDE 0.9% 2,041.17 ML 680.39 ML IV (23:47)
[2018-06-10 23:48] VITALS: TEMP 38.5
[2018-06-10 23:48] LABS: Add Manual Diff / Slide Review NO; Basophils Absolute Auto 100 /uL (0-100); Basophils Percent Auto 0.5 % (0-2); Eosinophils Absolute Auto 100 /uL (0-450); Eosinophils Percent Auto 1.1 % (2-4); Hematocrit 33.1 % (41-53); Hemoglobin 11.1 g/dL (13.5-17.5); Lymphocytes Absolute Auto 600 /uL (1100-4500); Lymphocytes Percent Auto 5.9 % (25-40); Mean Corpuscular HGB Conc 33.4 % (30-36); Mean Corpuscular Hemoglobin 27.2 PG (26-34); Mean Corpuscular Volume 81.2 fL (80-100); Monocytes Absolute Auto 900 /uL (0-900); Monocytes Percent Auto 9.1 % (3-14); Neutrophils Absolute Auto 8700 /uL (1500-7000); Neutrophils Percent Auto 83.4 % (50-75); Platelet Count 177 X10^3/uL (150-400); Red Blood Cell Count 4.08 X10^6/uL (4.5-5.9); Red Cell Distribution Width 15.4 % (11.6-14.8); White Blood Cell Count 10.4 X10^3/uL (4.5-11.0)
[2018-06-10] MEDS: ACETAMINOPHEN 325 MG TABLET 650 MG PO (23:48)
--- NOTE | 2018-06-10 23:50 | PC.NURSE ---
Pt c/o generalized weakness and multiple swollen and painful joints (Feet, L index finger, L shoulder).
[2018-06-10 23:58] LABS: Alanine Aminotransferase 36 IU/L (21-72); Albumin 3.2 g/dL (3.5-5.0); Albumin Globulin Ratio 0.9 (1.0-2.8); Alkaline Phosphatase 133 U/L (38-126); Aspartate Aminotransferase 24 IU/L (17-59); BUN Creatinine Ratio 17.8 (6-22); Bilirubin Total 1.1 mg/dL (0.2-1.3); Blood Urea Nitrogen 32 mg/dL (9-20); Calcium 8.5 mg/dL (8.4-10.2); Carbon Dioxide 23 mmol/L (22-32); Chloride 92 mmol/L (98-107); Estimated Glomerular Filt Rate 43.4 mL/min (>60); Globulin 3.4 g/dL (1.7-4.1); Glucose 123 mg/dL (70-100); HEMOLYSIS < 15 (0-50); Lipase < 10 U/L (23-300); Potassium 3.1 mmol/L (3.4-5.1); Sodium 129 mmol/L (137-145); Total Protein 6.6 g/dL (6.3-8.2)
[2018-06-11] VITALS (16 sets, daily range): BP systolic 78–148; BP diastolic 39–96; PULSE 91–119; RESP 13–25; TEMP 36.4–37.6; O2SAT 92–100; BMI 19.2
--- NOTE | 2018-06-11 | DI.CT.S_ITS ---
PROCEDURE: CT ABDOMEN PELVIS WO CON INDICATIONS: abdominal, flank pain TECHNIQUE: Non contrast, 5 mm thick sections acquired from the diaphragms to the symphysis. 5 mm coronal and sagittal reformats were performed. For radiation dose reduction, the following was used: automated exposure control, adjustment of mA and/or kV according to patient size. COMPARISON: [facility], CR, XR CHEST 1V, 06/10/2018, 23:56. FINDINGS: Image quality: Excellent. ABDOMEN: Lung bases: Multiple lung nodules are present in lower lobes bilaterally. Heart size is normal. Solid organs: Liver and spleen are enlarged. Possible small gravel gallstones. Pancreas is normal in size. Spleen is normal in size. No adrenal nodules. Both kidneys are normal in size, without hydronephrosis or nephrolithiasis. Peritoneum and bowel: Bowel loops demonstrate normal wall thickness and caliber. No free fluid or air. Nodes and vessels: Mildlt enlarged retroperitoneal lymph nodes are present measuring up to 1 cm in short axis. Aorta and inferior vena cava are normal in size. Miscellaneous: No ventral hernias. PELVIS: Genitourinary: Bladder wall thickness is normal. There is a small amount of free fluid. Miscellaneous: No inguinal hernias. Slightly enlarged inguinal lymph nodes are seen bilaterally measuring up to 1.1 cm in short axis. Bones: No suspicious bony lesions. No vertebral body compression fractures. IMPRESSION: 1. Multiple pulmonary nodules bilaterally. Differential diagnoses include infectious, inflammatory and neoplastic processes. Recommend clinical correlation. 2. Hepatosplenomegaly. 3. Mild retroperitoneal and bilateral inguinal lymphadenopathy. 4. Question tiny gallstones stones. Ultrasound may be helpful. 5. A small amount of free fluid. 6. No renal stone or hydronephrosis. No CT findings to explain flank pain. Dictated by: Alex Adams M.D. on 06/11/2018 at 9:05 Approved by: Alex Adams M.D. on 06/11/2018 at 20:29
[2018-06-11 00:24] LABS: INR 1.3 (0.9-1.3); PTT Partial Thromboplastin Tim 26 SECONDS (26.4-36.2); Prothrombin Time 15.6 SECONDS (10.1-12.7)
--- NOTE | 2018-06-11 00:30 | PC.NURSE ---
Dr Doherty aware of BP drop.
--- NOTE | 2018-06-11 00:30 | ED.MALEGU ---
HPI - Male Genitourinary General Chief complaint: Urogenital-Male Stated complaint: Body hurts,lwr back/kidney pain,thinks infection Time Seen by Provider: 06/10/18 23:38 Source: patient Mode of arrival: ambulatory Limitations: no limitations History of Present Illness HPI Narrative: Patient is a 32-year-old male here for evaluation of 2-3 days worsening body aches, fevers, joint pain. No specific trauma. Patient is a IV drug user. States that the last time that he injected himself was 37 days ago however has smoked both heroin and methamphetamine within the past week. Patient states that overall he does not feel very well. Related Data Home Medications Medication Instructions Recorded Confirmed No Known Home Medications 04/26/18 06/11/18 Allergies Allergy/AdvReac Type Severity Reaction Status Date / Time No Known Drug Allergies Allergy Verified 06/11/18 02:00 Review of Systems Review of Systems ROS Unobtainable: All systems reviewed & are unremarkable except as noted in HPI and below Constitutional Reports body ache(s), Reports fatigue and Reports fever(s) Cardiovascular Denies chest pain and Denies dyspnea Respiratory Denies dyspnea Gastrointestinal Gastrointestinal: Denies abdominal pain and Denies change in bowel habits Musculoskeletal Comments: Left shoulder pain, left elbow pain and swelling, swelling to his right index finger, Integumentary/Breasts Denies lesions and Denies rash Neurologic Denies behavioral changes Psychiatric Denies behavioral changes Endocrine Reports fatigue Hematologic/Lymphatic Denies easy bleeding and Denies easy bruising Allergic/Immunologic Reports system reviewed and no additional complaints, except as docu and Denies urticaria PFSH Medical History Drug abuse (Acute) Social History household members: spouse, family and children Smoking Status: Former smoker Social History household members: spouse, family and children Smoking Status: Former smoker Exam Initial Vital Signs Initial Vital Signs: Vital Signs Temperature 99.8 F H 06/10/18 23:02 Pulse Rate 139 H 06/10/18 23:02 Respiratory Rate 16 06/10/18 23:02 Blood Pressure 100/63 06/10/18 23:02 Pulse Oximetry 100 06/10/18 23:02 Const General: No acute distress and ill appearing Orientation: alert, awake and oriented x3 HENMT Head: normal to inspection and normocephalic Eyes Eyelids: eyelids normal Pupils: PERRL EOM: EOM intact bilaterally Resp Effort & Inspection: normal respiratory effort Auscultation: clear to auscultation bilaterally Cardio Rate: tachycardic Rhythm: regular rhythm Heart Sounds: no murmurs Pulses: radial pulses present GI Inspection: non-distended Palpation: soft, No firm and No tender Back/Spine/Pelvis Back: CVA tenderness (Bilateral) Skin Lesions: lesions noted Rashes: rash noted Neuro General: alert, awake and oriented x3 Cognition: normal cognition Speech: speech normal Extrem Other: Patient with tenderness to palpation left shoulder however does have range of motion in that shoulder. Patient does have swelling to the left ankle and warmth however full range of motion of the left ankle. Swelling to the right index finger. Psych Appearance: grossly normal and well kempt Scores GCS [place] coma scale eye opening: Spontaneous [place] coma scale verbal response: Orientated [place] coma scale motor response: Obey commands [place] coma scale total score: 15 Course Orders Ordered: ED Orders 06/10/18 23:08 Influenza A and B by PCR Rapid Stat Urine Culture Stat Urine Microscopic Stat 06/10/18 23:30 Complete Blood Count AUTO DIFF Stat Comprehensive Metabolic Panel Stat Lactate (Lactic Acid) Stat Lipase Stat Partial Thromboplastin Time Stat Procalcitonin Stat Prothrombin Time INR Stat 06/10/18 23:37 XR chest 1V Stat 06/10/18 23:53 Blood Culture Stat 06/11/18 00:48 Blood Culture Stat 06/11/18 01:06 C-Reactive Protein Quant Stat Erythrocyte Sedimentation Rate Stat 06/11/18 04:53 Consult to Tester Waste Disposal Leakage Routine Discontinued Medications Acetaminophen (Tylenol) 650 mg PO NOW ONE Stop: 06/10/18 23:39 Last Admin: 06/10/18 23:48 Dose: 650 mg Sodium Chloride (Normal Saline 0.9%) 2,041.17 mls @ 680.39 mls/hr 30 ml/kg infuse over 3 hr (2041.17 ml) IV NOW ONE Stop: 06/11/18 02:38 Last Infusion: 06/11/18 02:07 Dose: 999 mls/hr Infusion: 06/11/18 02:00 Dose: 999 mls/hr Infusion: 06/11/18 01:08 Dose: 200 mls/hr Admin: 06/10/18 23:47 Dose: 680.39 mls/hr Ceftriaxone Sodium/Dextrose (Rocephin) 1 gm in 50 mls @ 100 mls/hr IV NOW ONE Stop: 06/11/18 00:41 Last Admin: 06/11/18 00:50 Dose: Not Given Cefepime HCl 2 gm/ Sodium (Chloride) 100 mls @ 200 mls/hr IV NOW ONE Stop: 06/11/18 00:40 Last Infusion: 06/11/18 01:40 Dose: 0 mls/hr Admin: 06/11/18 01:06 Dose: 200 mls/hr Vancomycin HCl 2,000 mg/ (Sodium Chloride) 500 mls @ 250 mls/hr IV NOW ONE Stop: 06/11/18 00:43 Last Infusion: 06/11/18 02:07 Dose: 0 mls/hr Admin: 06/11/18 02:04 Dose: 250 mls/hr Vital Signs - 8 hr 06/10/18 23:02 06/10/18 23:20 06/10/18 23:36 Temperature 99.8 F H 101.3 F H Pulse Rate 139 H 125 H Respiratory Rate 16 15 Blood Pressure 100/63 Blood Pressure [Left Arm] 91/45 L Pulse Oximetry 100 99 06/10/18 23:48 06/11/18 00:30 06/11/18 01:07 Temperature 101.3 F H 98.7 F Pulse Rate 118 H Respiratory Rate 25 H Blood Pressure Blood Pressure [Left Arm] 94/39 L Pulse Oximetry 97 06/11/18 01:23 06/11/18 02:01 06/11/18 02:33 Temperature 98.3 F 97.9 F Pulse Rate 119 H 108 H 114 H Respiratory Rate 24 13 16 Blood Pressure 88/39 L 108/46 L Blood Pressure [Left Arm] 78/52 L Pulse Oximetry 95 96 MDM - Male Genitourinary Lab Data Attestation: I reviewed the patient's lab results. Result diagrams: 06/10/18 23:30 06/10/18 23:30 Lab Results 06/10/18 06/10/18 06/10/18 Range/Units 23:08 23:08 23:30 WBC 10.4 (4.5-11.0) X10^3/uL RBC 4.08 L (4.5-5.9) X10^6/uL Hgb 11.1 L (13.5-17.5) g/dL Hct 33.1 L (41-53) % MCV 81.2 (80-100) fL MCH 27.2 (26-34) PG MCHC 33.4 (30-36) % RDW 15.4 H (11.6-14.8) % Plt Count 177 (150-400) X10^3/uL Neut % (Auto) 83.4 H (50-75) % Lymph % (Auto) 5.9 L (25-40) % [place] % (Auto) 9.1 (3-14) % Eos % (Auto) 1.1 L (2-4) % Baso % (Auto) 0.5 (0-2) % Neut # (Auto) 8700 H (0631-6224) /uL Lymph # (Auto) 600 L (9804-2115) /uL [place] # (Auto) 900 (0-900) /uL Eos # (Auto) 100 (0-450) /uL Baso # (Auto) 100 (0-100) /uL ESR (0-15) MM/HR PT (10.1-12.7) SECONDS INR (0.9-1.3) APTT (26.4-36.2) SECONDS Sodium (137-145) mmol/L Potassium (3.4-5.1) mmol/L Chloride (98-107) mmol/L Carbon Dioxide (22-32) mmol/L BUN (9-20) mg/dL Creatinine (0.66-1.25) mg/dL Estimated GFR (>60) mL/min BUN/Creatinine Ratio (6-22) Glucose (70-100) mg/dL Lactate (0.7-2.1) mmol/L Calcium (8.4-10.2) mg/dL Total Bilirubin (0.2-1.3) mg/dL AST (17-59) IU/L ALT (21-72) IU/L Alkaline Phosphatase (38-126) U/L C-Reactive Protein (<1.0) mg/dL Total Protein (6.3-8.2) g/dL Albumin (3.5-5.0) g/dL Globulin (1.7-4.1) g/dL Albumin/Globulin Ratio (1.0-2.8) Lipase (23-300) U/L Procalcitonin (<0.5) ng/mL Urine RBC 1-5/hpf (0-5/HPF) Urine WBC 1-5/hpf (0-5/HPF) Ur Squamous Epith Cells None seen Urine Bacteria None seen (None) Ur Culture Indicated? Specimen cultured Influenza A & B (PCR) Negative (Negative) 06/10/18 06/10/18 06/10/18 Range/Units 23:30 23:30 23:30 WBC (4.5-11.0) X10^3/uL RBC (4.5-5.9) X10^6/uL Hgb (13.5-17.5) g/dL Hct (41-53) % MCV (80-100) fL MCH (26-34) PG MCHC (30-36) % RDW (11.6-14.8) % Plt Count (150-400) X10^3/uL Neut % (Auto) (50-75) % Lymph % (Auto) (25-40) % [place] % (Auto) (3-14) % Eos % (Auto) (2-4) % Baso % (Auto) (0-2) % Neut # (Auto) (3146-4885) /uL Lymph # (Auto) (1247-5726) /uL [place] # (Auto) (0-900) /uL Eos # (Auto) (0-450) /uL Baso # (Auto) (0-100) /uL ESR (0-15) MM/HR PT 15.6 H (10.1-12.7) SECONDS INR 1.3 (0.9-1.3) APTT 26 L (26.4-36.2) SECONDS Sodium 129 L (137-145) mmol/L Potassium 3.1 L (3.4-5.1) mmol/L Chloride 92 L (98-107) mmol/L Carbon Dioxide 23 (22-32) mmol/L BUN 32 H (9-20) mg/dL Creatinine 1.80 H (0.66-1.25) mg/dL Estimated GFR 43.4 L (>60) mL/min BUN/Creatinine Ratio 17.8 (6-22) Glucose 123 H (70-100) mg/dL Lactate (0.7-2.1) mmol/L Calcium 8.5 (8.4-10.2) mg/dL Total Bilirubin 1.1 (0.2-1.3) mg/dL AST 24 (17-59) IU/L ALT 36 (21-72) IU/L Alkaline Phosphatase 133 H (38-126) U/L C-Reactive Protein (<1.0) mg/dL Total Protein 6.6 (6.3-8.2) g/dL Albumin 3.2 L (3.5-5.0) g/dL Globulin 3.4 (1.7-4.1) g/dL Albumin/Globulin Ratio 0.9 L (1.0-2.8) Lipase < 10 L (23-300) U/L Procalcitonin 2.38 H (<0.5) ng/mL Urine RBC (0-5/HPF) Urine WBC (0-5/HPF) Ur Squamous Epith Cells Urine Bacteria (None) Ur Culture Indicated? Influenza A & B (PCR) (Negative) 06/10/18 06/10/18 06/10/18 Range/Units 23:30 23:30 23:30 WBC (4.5-11.0) X10^3/uL RBC (4.5-5.9) X10^6/uL Hgb (13.5-17.5) g/dL Hct (41-53) % MCV (80-100) fL MCH (26-34) PG MCHC (30-36) % RDW (11.6-14.8) % Plt Count (150-400) X10^3/uL Neut % (Auto) (50-75) % Lymph % (Auto) (25-40) % [place] % (Auto) (3-14) % Eos % (Auto) (2-4) % Baso % (Auto) (0-2) % Neut # (Auto) (8105-9010) /uL Lymph # (Auto) (2453-8933) /uL [place] # (Auto) (0-900) /uL Eos # (Auto) (0-450) /uL Baso # (Auto) (0-100) /uL ESR 40 H (0-15) MM/HR PT (10.1-12.7) SECONDS INR (0.9-1.3) APTT (26.4-36.2) SECONDS Sodium (137-145) mmol/L Potassium (3.4-5.1) mmol/L Chloride (98-107) mmol/L Carbon Dioxide (22-32) mmol/L BUN (9-20) mg/dL Creatinine (0.66-1.25) mg/dL Estimated GFR (>60) mL/min BUN/Creatinine Ratio (6-22) Glucose (70-100) mg/dL Lactate 1.0 (0.7-2.1) mmol/L Calcium (8.4-10.2) mg/dL Total Bilirubin (0.2-1.3) mg/dL AST (17-59) IU/L ALT (21-72) IU/L Alkaline Phosphatase (38-126) U/L C-Reactive Protein 39.0 H (<1.0) mg/dL Total Protein (6.3-8.2) g/dL Albumin (3.5-5.0) g/dL Globulin (1.7-4.1) g/dL Albumin/Globulin Ratio (1.0-2.8) Lipase (23-300) U/L Procalcitonin (<0.5) ng/mL Urine RBC (0-5/HPF) Urine WBC (0-5/HPF) Ur Squamous Epith Cells Urine Bacteria (None) Ur Culture Indicated? Influenza A & B (PCR) (Negative) Urine Dip Bedside Urine Glucose Negative Bedside Urine Bilirubin + 1 Bedside Urine Ketone - Negative Urine Specific [place] 1.020 Bedside Urine Occult Blood +/- Bedside Urine pH 5.5 Bedside Urine Protein ++ 100 Bedside Urine Urobilinogen 1+ 2mg Bedside Urine Nitrite + Positive Bedside Urine Leukocytes + 70 Esterase Imaging Data Chest x-ray: Attestation: I personally reviewed and interpreted this imaging study as follows: My impression: Bilateral patchy infiltrates however no focal pneumonia Normal size MDM Narrative Medical decision making narrative: Patient tachycardic and febrile upon arrival. Has a normal white blood cell count and normal lactate however elevated procalcitonin elevated ESR, elevated CRP. Urinalysis is nitrate positive however urine microscopic shows no white blood cells. With his CVA tenderness this could represent pyelonephritis especially in the setting of a elevated creatinine however in a situation with a IV drug abuser and fever and multiple joint pain and swelling I have a high concern for endocarditis. Considered septic joint however he does have range of motion of these joints and when he states that he has pain he states that it is not ?in the joint ?3 sets of blood cultures were obtained. 2 g vancomycin and 2 g cefepime ordered. Cefepime would cover if this turns out to be just pyelonephritis. He was given 30 cc/kilos of fluids. His fever improved with Tylenol and his heart rate improved with IV fluids. He did have borderline blood pressures with systolics in the 80s and 90s and the maps in the 50s however he was mentating without any problems. Second IV was started. Did not feel the need to start vasopressor medication. Discussed the case with the night hospitalist who will accept the patient. Discussed the admission with the patient who expressed understanding and agreement with plan. Discharge Plan Departure Patient Disposition: Admitted As Inpatient Clinical Impression: Endocarditis Qualifiers: Endocarditis type: unspecified Chronicity: unspecified Qualified Code(s): I38 - Endocarditis, valve unspecified Urinary tract infection Qualifiers: Urinary tract infection type: acute cystitis Hematuria presence: without hematuria Qualified Code(s): N30.00 - Acute cystitis without hematuria Discharge Date/Time: 06/11/18 02:07 Interventions: ED Discharge Assessment Last Done: 06/11/18 02:01 Admit Date/Time: 06/11/18 01:20 Admit Provider: Eleazar Branham
[2018-06-11 00:38] LABS: Procalcitonin 2.38 ng/mL (<0.5)
[2018-06-11] MEDS: CEFEPIME 2 GM in SODIUM CHLORIDE 0.9% 100 ML 200 ML IV ×3 (01:06→23:40)
[2018-06-11 01:43] LABS: Erythrocyte Sedimentation Rate 40 MM/HR (0-15)
[2018-06-11] MEDS: VANCOMYCIN 2,000 MG in SODIUM CHLORIDE 0.9% 500 ML 250 ML IV (02:04)
--- NOTE | 2018-06-11 02:35 | PC.NURSE ---
Pt arrived from ED via stretcher at approx 0250. A/O, able to independently trans from stretcher to bed. IVF infusing per orders at 680/hr. Vanco infusion to be infused once bolus is complete. Oriented to room and call system. Pt verbalized he will call for needs.
--- NOTE | 2018-06-11 05:35 | P.HP_ITS ---
History of Present Illness Date Patient Seen: 06/11/18 Time Patient Seen: 05:35 Chief complaint: Body hurts,lwr back/kidney pain,thinks infection Narrative: The patient is a 32-year-old male who presented to the ED out of concern for generalized malaise, myalgia and fever. Symptom onset is sudden, initially noted 5-6 days ago, progressively worsening. At that time developed sudden onset of fever and generalized body aches. Fever has been constant, in the 100-102 range. Patient has been treating febrile state with OTC Aleve 2 tablets every 4-6 hour. Additional symptoms include: right flank pain, joint inflammation (particularly fingers,toes,knees), and pleurisy. Inflammatory / erythema localized to distal extremities. Left knee with a non- tender lesion. Denies chest pain; but notes pleurisy. No dizziness, lightheadedness, or syncopal events. No hemoptysis. Urine output is decreased and concentrated. Notes constipation and right flank pain. No recent URI illness , strep pain, or GI symptoms. no trauma to the abdomen or torso. Patient is known to have a history of IV drug use. Methamphetamine (infrequently) and heroin. Last injected used 37 days ago. Currently continues to use recreational substances via inhalation route. Last use 1 week ago , heroin, proximally 2 gm. patient reports being on Suboxone, but unable to provide dose. Patient was hospitalized 04/26 through 04/30, for a deep abscess in the left antecubital region. Required irrigation and debridement on 04/26/[address] Wilkes. Postoperatively started on vancomycin. Culture results revealed growth of Strep mitis / Strep oralis. Sensitive to all antibiotics except erythromycin and tetracycline. Patient was treated with a 3 day course of IV vancomycin. On day 4 (day of discharged) was changed to oral amoxicillin. Instructed to take 500 mg QID for 15 days. Finished 13 of 15 days. PMH: IV drug use, polysubstance abuse, left anticubital abscess, h/o bacteremia PSH: I/D of antecubital abscess ED Work-UP WBC 10.4 HGB 11.1 PLT 177 NA 129 K 3.1 CL 92 CA 8.5 ALB 3.2 CO2 23 BUN 32 CR 1.8 AST 24 ALT 36 Alk Phos 133 Lipase < 10 Lactate 1.0 PCT 2.38 ESR 40 CRP 39 influnza A/B negative UA + nitrite (communicated by ED physician, unable to verify in record) Patient History Medical History Drug abuse (Acute) Social History household members: spouse, family and children Smoking Status: Former smoker Family & Social History Family History Mother No known health problems Father No known health problems Social History: household members spouse,family,children Prior Living Arrangements House Safety & Behavioral: Feels Safe in Current Yes Environment Been Physically Hurt or No Threatened By a Person Suicidal Ideation Description None Suicide Plan Description No Plan Tobacco & Substance use: Tobacco type e-cigarettes,smokeless tobacco,cannabis/ marijuana Smoking Status Former smoker alcohol intake frequency a few times a month Substance Use Type heroin,IV drugs,methamphetamine Meds Home Medications Medication Instructions Recorded Confirmed Type No Known Home Medications 04/26/18 06/11/18 History Allergies Allergy/AdvReac Type Severity Reaction Status Date / Time No Known Drug Allergies Allergy Verified 06/11/18 02:00 Review of Systems Review of Systems All systems reviewed & are unremarkable except as noted in HPI and below Exam Vital Signs (past 8 hours): - 06/10/18 23:02 06/10/18 23:20 06/10/18 23:36 Temperature 99.8 F H 101.3 F H Pulse Rate 139 H 125 H Respiratory Rate 16 15 Blood Pressure 100/63 Blood Pressure [Left Arm] 91/45 L Pulse Oximetry 100 99 06/10/18 23:48 06/11/18 00:30 06/11/18 01:07 Temperature 101.3 F H 98.7 F Pulse Rate 118 H Respiratory Rate 25 H Blood Pressure Blood Pressure [Left Arm] 94/39 L Pulse Oximetry 97 06/11/18 01:23 06/11/18 02:01 06/11/18 02:33 Temperature 98.3 F 97.9 F Pulse Rate 119 H 108 H 114 H Respiratory Rate 24 13 16 Blood Pressure 88/39 L 108/46 L Blood Pressure [Left Arm] 78/52 L Pulse Oximetry 95 96 06/11/18 05:30 Temperature Pulse Rate 115 H Respiratory Rate Blood Pressure 103/58 L Blood Pressure [Left Arm] Pulse Oximetry 100 Oxygen Delivery Method Room Air Narrative Exam Narrative: patient in apparent distress and discomfort alert and oriented x3, no focal neurological deficits NC / AT; gaze conjugate, LUIS, EOMI, sclera anicteric; no conjunctiva was splinter hemorrhage, external ears normal, hearing acuity intact external nose with obvious deformity, no epistaxis; oropharynx w/ dry and inflammed mucosa CTA, diminished breath sounds in the bases bilaterally, no pleural rub, pleurisy per patient's report S1-S2, no S3, no murmur Generalized muscle pain on palpation throughout Joint pain w/ inflammation, particularly fingers, toes, knees left knee with non-tender erythematous lesion, edema, no effusion Objective Labs Result Diagrams: 06/11/18 06:34 06/11/18 06:34 Labs: Laboratory Results - last 24 hr 06/10/18 06/10/18 06/10/18 23:08 23:08 23:30 WBC 10.4 RBC 4.08 L Hgb 11.1 L Hct 33.1 L MCV 81.2 MCH 27.2 MCHC 33.4 RDW 15.4 H Plt Count 177 Neut % (Auto) 83.4 H Lymph % (Auto) 5.9 L [place] % (Auto) 9.1 Eos % (Auto) 1.1 L Baso % (Auto) 0.5 Neut # (Auto) 8700 H Lymph # (Auto) 600 L [place] # (Auto) 900 Eos # (Auto) 100 Baso # (Auto) 100 ESR PT INR APTT Sodium Potassium Chloride Carbon Dioxide BUN Creatinine Estimated GFR BUN/Creatinine Ratio Glucose Lactate Calcium Total Bilirubin AST ALT Alkaline Phosphatase C-Reactive Protein Total Protein Albumin Globulin Albumin/Globulin Ratio Lipase Procalcitonin Urine RBC 1-5/hpf Urine WBC 1-5/hpf Ur Squamous Epith Cells None seen Urine Bacteria None seen Ur Culture Indicated? Specimen cultured Influenza A & B (PCR) Negative 06/10/18 06/10/18 06/10/18 23:30 23:30 23:30 WBC RBC Hgb Hct MCV MCH MCHC RDW Plt Count Neut % (Auto) Lymph % (Auto) [place] % (Auto) Eos % (Auto) Baso % (Auto) Neut # (Auto) Lymph # (Auto) [place] # (Auto) Eos # (Auto) Baso # (Auto) ESR PT 15.6 H INR 1.3 APTT 26 L Sodium 129 L Potassium 3.1 L Chloride 92 L Carbon Dioxide 23 BUN 32 H Creatinine 1.80 H Estimated GFR 43.4 L BUN/Creatinine Ratio 17.8 Glucose 123 H Lactate Calcium 8.5 Total Bilirubin 1.1 AST 24 ALT 36 Alkaline Phosphatase 133 H C-Reactive Protein Total Protein 6.6 Albumin 3.2 L Globulin 3.4 Albumin/Globulin Ratio 0.9 L Lipase < 10 L Procalcitonin 2.38 H Urine RBC Urine WBC Ur Squamous Epith Cells Urine Bacteria Ur Culture Indicated? Influenza A & B (PCR) 06/10/18 06/10/18 06/10/18 23:30 23:30 23:30 WBC RBC Hgb Hct MCV MCH MCHC RDW Plt Count Neut % (Auto) Lymph % (Auto) [place] % (Auto) Eos % (Auto) Baso % (Auto) Neut # (Auto) Lymph # (Auto) [place] # (Auto) Eos # (Auto) Baso # (Auto) ESR 40 H PT INR APTT Sodium Potassium Chloride Carbon Dioxide BUN Creatinine Estimated GFR BUN/Creatinine Ratio Glucose Lactate 1.0 Calcium Total Bilirubin AST ALT Alkaline Phosphatase C-Reactive Protein 39.0 H Total Protein Albumin Globulin Albumin/Globulin Ratio Lipase Procalcitonin Urine RBC Urine WBC Ur Squamous Epith Cells Urine Bacteria Ur Culture Indicated? Influenza A & B (PCR) Assessment & Plan Assessment & Plan narrative: Acute kidney injury (sCr 1.8), present on admission Baseline 0.8 - UA dipstick negative, communicated by ED to be positive for nitrites, will repeat UA with micro and culture is indicated Acute abdominal pain / flank pain, present on admission no leukocytosis or lactate elevation - CT A/P w/o contrast Elevated inflammatory markers, ESR 40 CRP 39 PCT 2.39 DDx: endocarditis, acute glomerulonephritis, vasculitis Risk factors: IV drug user, recent surgical procedure, - blood cultures, troponin, UA - obtain UA, to evaluate for hematuria, proteinuria, RBC casts or pyuria given SHANNON / degree of renal involvement - EKG Stat - echo, may need a ANGELA to assess for vegetation - chest x-ray pending Hypovolemia Na 132 Cl 92 - Received IVF bolus per sepsis protocol in the ED - resume IV fluids, NS w/ 20 KCL at 125 ml/hr - replete e-lyte deficiencies - CMP this am, BMP at noon Normocytic Normochromic Anemia - Trend Hgb - Repeat CBC this morning Full Code; is the surrogate decision maker Quality VTE Deep Vein Thrombosis/Pulmonary Embolism Present on Admission: No
--- NOTE | 2018-06-11 06:46 | PC.NURSE ---
ACCESS COORDINATOR hospitalist ordered an NPO diet but stated that the patient can drink.
[2018-06-11 06:49] LABS: Hematocrit 30.2 % (41-53); Hemoglobin 10.1 g/dL (13.5-17.5); Mean Corpuscular HGB Conc 33.5 % (30-36); Mean Corpuscular Hemoglobin 27.1 PG (26-34); Platelet Count 175 X10^3/uL (150-400); Red Blood Cell Count 3.73 X10^6/uL (4.5-5.9); Red Cell Distribution Width 15.1 % (11.6-14.8); White Blood Cell Count 10.7 X10^3/uL (4.5-11.0)
[2018-06-11] MEDS: SODIUM CHLORIDE 0.9% 1,000 ML 100 ML IV (06:51)
[2018-06-11 07:03] LABS: Alanine Aminotransferase 31 IU/L (21-72); Albumin 2.5 g/dL (3.5-5.0); Albumin Globulin Ratio 0.8 (1.0-2.8); Alkaline Phosphatase 109 U/L (38-126); Aspartate Aminotransferase 19 IU/L (17-59); BUN Creatinine Ratio 19.3 (6-22); Blood Urea Nitrogen 29 mg/dL (9-20); Calcium 7.9 mg/dL (8.4-10.2); Carbon Dioxide 25 mmol/L (22-32); Chloride 97 mmol/L (98-107); Estimated Glomerular Filt Rate 53.6 mL/min (>60); Glucose 106 mg/dL (70-100); HEMOLYSIS < 15 (0-50); Potassium 2.9 mmol/L (3.4-5.1); Sodium 132 mmol/L (137-145); Total Protein 5.5 g/dL (6.3-8.2)
[2018-06-11] MEDS: ACETAMINOPHEN 325 MG TABLET 650 MG PO (07:03)
[2018-06-11 07:14] LABS: Troponin I < 0.012 ng/mL (0.01-0.034)
[2018-06-11 07:16] LABS: Appearance Urine UA SL CLOUDY; Bilirubin Urine UA NEGATIVE (NEGATIVE); Color Urine UA YELLOW; Glucose Urine UA NEGATIVE (Negative); Ketones Urine UA NEGATIVE (NEGATIVE); Leukocyte Esterase Urine UA NEGATIVE (NEGATIVE); Nitrite Urine UA NEGATIVE (Negative); Occult Blood Urine UA 1+ (Negative); Protein Urine UA TRACE (Negative); Specific Gravity Urine UA <=1.005 (1.000-1.035); pH Urine UA 5.5 (4.5-8.0)
--- NOTE | 2018-06-11 07:32 | DI.ECHO.S_ITS ---
[facility]---------+ [facility] +---------+ : : [address] : : : : [id number] : : : : Phone: [phone] Echocardiogram Report + + :Name: MAAME RAM Study Date: 06/11/2018 Height: 74 in : :[facility] Exam Location: [facility] Weight: 220 lb : : Gender: Male BSA: 2.3 m2 : :: 1985 Age: 32 yrs BP: 104/56 mmHg: :Reason For Study: Pleurisy/ endocarditis/ SOB : :Ordering Physician: Kaiser : :Hospitalist Performed By: Medina Page : :Referring: JESSE JOE : + + Interpretation Summary The patient was in extreme discomfort and had trouble tolerating the exam. The left ventricle is borderline dilated but left ventricular systolic function is normal without focal wall motion abnormalities with the ejection fraction visually estimated to be 55-60%. Diastolic function could not be accurately assessed due to tachycardia. The right ventricle is at the upper limits of normal in size but systolic function is normal. The right ventricular systolic pressure is estimated to be at least 27 mmHg based on an estimated right atrial pressure of 3 mm Hg. Both atria are mildly dilated. Tricuspid leaflets are mildly thickened but opened well without any obvious tricuspid valve vegetation. There is mild tricuspid regurgitation but no other significant valvular heart disease. Specifically, there is no obvious valvular vegetation identified on this exam. Consider ANGELA if there is a high degree of clinical suspicion for endocarditis with positive blood cultures and stigmata of endocarditis and clinically appropriate. Procedure: A two-dimensional transthoracic echocardiogram with color flow and Doppler was performed. The study quality was technically adequate. There is no prior echocardiogram noted for this patient. The patient was in sinus tachycardia with heart rates between 95-112 bpm during the exam. Left Ventricle: The left ventricle is borderline dilated. There is normal left ventricular wall thickness. Left ventricular systolic function is normal without focal wall motion abnormalities. The ejection fraction is estimated to be 55-60%. Diastolic function could not be accurately assessed due to tachycardia. Right Ventricle: The right ventricle is at the upper limits of normal in size. The right ventricular systolic function is normal. Atria: Both atria are mildly dilated. There is no Doppler evidence for an interatrial shunt. Mitral Valve: The mitral valve is normal in structure and function. There is no vegetation seen on the mitral valve. There is trace mitral regurgitation. Aortic Valve: The aortic valve is grossly normal. The aortic valve is slightly calcified. The aortic valve opens well. There is no obvious aortic valvular vegetation. No aortic regurgitation is present. Tricuspid Valve: Tricuspid leaflets are thickened. There is no obvious tricuspid valve vegetation. There is mild tricuspid regurgitation. The right ventricular systolic pressure is estimated to be at least 27 mmHg based on an estimated right atrial pressure of 3 mm Hg. Pulmonic Valve: The pulmonic valve is not well visualized. There is a trace or physiologic amount of pulmonic regurgitation. There is no other significant valvular heart disease. There is no obvious valvular vegetation identified on this exam. Consider ANGELA if there is a high degree of clinical suspicion for endocarditis and clinically appropriate. Great Vessels: The aortic root is normal size. The ascending aorta could not be visualized. The pulmonary is not well visualized. The IVC is of normal diameter and collapses greater than 50% with a sniff. This suggests a low right atrial pressure of 3 mm Hg. Pericardium/ Pleura There is no pericardial effusion. There is no pleural effusion. MMode/2D Measurements & Calculations LVIDd: 5.8 cm Ao root diam: 3.2 cm LVIDs: 4.4 cm FS: 24.4 % EPSS: 0.72 cm IVSd: 0.85 cm LVPWd: 0.68 cm LV jha. diameter/BSA (cm/m^2): 2.6 LV sys. diameter/BSA (cm/m^2): 1.9 LA A2 area: 22.5 cm2 RA long axis: 5.0 cm LA A4 area: 22.4 cm2 RA area: 21.4 cm2 LA length (vol): 5.1 cm RA vol: 78.1 ml LA vol: 83.8 ml RA : 34.5 ml/m2 LA vol index: 37.0 ml/m2 IVC diam: 2.0 cm RVD1 (basal): 4.2 cm Doppler Measurements & Calculations Ao V2 max: 130.6 cm/sec LVOT Max Jef: 112.9 cm/sec Ao V2 mean: 97.3 cm/sec LV V1 max P.1 mmHg Ao max P.8 mmHg LV V1 VTI: 19.0 cm Ao mean P.1 mmHg sev ratio: 0.80 Ao V2 VTI: 23.7 cm TR max jef: 242.8 cm/sec MV V2 mean: 64.7 cm/sec TR max P.6 mmHg MV mean P.0 mmHg PA V2 max: 64.3 cm/sec MV V2 VTI: 17.2 cm PA V2 mean: 43.2 cm/sec PA mean P.84 mmHg PA Accel Time: 0.09 sec Reading Physician:MARIA ELENA
[2018-06-11 07:37] LABS: Anisocytosis 1+; Neutrophils Absolute Manual 9416 /uL (3000-5900); Total Cells Counted 100
[2018-06-11 07:38] LABS: Dohle Bodies 2+; Toxic Granulation Present
[2018-06-11 07:53] LABS: Bacteria Urine Moderate (10-30); Culture Indicated Urine Specimen Cultured; RBC Urine 1-5/HPF (0-5/HPF); WBC Urine 0-1/HPF (0-5/HPF)
[2018-06-11] MEDS: HYDROMORPHONE 0.5 MG INJ IV (07:58)
[2018-06-11] MEDS: BISACODYL 10 MG SUPP PR (08:08)
[2018-06-11 08:37] LABS: Procalcitonin 1.88 ng/mL (<0.5)
[2018-06-11] MEDS: KCL 20 MEQ IN NS 1,000 ML 125 MEQ IV ×2 (09:31→20:35)
[2018-06-11] MEDS: VANCOMYCIN 1,000 MG/200 ML FROZ.PIGGY 200 MG IV ×2 (09:31→16:17)
[2018-06-11] MEDS: HEPARIN 5,000 UNIT/ML VIAL 5000 UNIT SUBCUT ×2 (09:31→20:35)
[2018-06-11 12:10] LABS: Enterococcus species Not Detected (Not Detect); Listeria monocytogenes Not Detected (Not Detect); Staphylococcus species Detected (Not Detect); Streptococcus species Not Detected (Not Detect)
[2018-06-11 12:11] LABS: Acinetobacter baumannii Not Detected (Not Detect); Candida albicans Not Detected (Not Detect); Candida glabrata Not Detected (Not Detect); Candida krusei Not Detected (Not Detect); Candida parapsilosis Not Detected (Not Detect); Candida tropicalis Not Detected (Not Detect); E. coli Not Detected (Not Detect); Enterobacter cloacae complex Not Detected (Not Detect); Enterobacteriaceae species Not Detected (Not Detect); Haemophilus influenzae Not Detected (Not Detect); Methicillin-resistant gene Detected (Not Detect); Neisseria meningitidis Not Detected (Not Detect); Proteus species Not Detected (Not Detect); Pseudomonas aeruginosa Not Detected (Not Detect); Serratia marcescens Not Detected (Not Detect); Streptococcus agalactiae (Gr B Not Detected (Not Detect); Streptococcus pneumonia Not Detected (Not Detect); Streptococcus pyogenes (Gr A) Not Detected (Not Detect)
--- NOTE | 2018-06-11 15:52 | CM.DANOTE ---
DCP/Assessment: Reviewed chart. Patient is a 32yr old male admitted to [facility] with generalized weakness and fever. No PCP listed. Primary payor is 1)[employer] 2)Medicaid. Met with patient and spouse/Janet at bedside. Patient alert and oriented during assessment but in obvious discomfort. Patient reports that he was visiting family in area when he started to get sick. Patient and spouse reside in [place], [place]. Patient reports that he is I with ADL's at baseline. Spoke with Dr. Patel whom reports that she is going to try to transfer patient to higher level of care. Blood cultures show patient with MRSA in blood. Patient admits to using illegal substances specifically heroin. Patient reports that he last used approximately 1 week ago. Patient does not think he is going through detox. Patient has been on suboxene in the past for treatment of heroin addiction. Patient and spouse both deny need for community resources for substance abuse. Patient aware that he most likely will be transferred. Patient prefers to head to facility towards [facility]. Patient resides in [place] and would like to be closer to home. RN/Charge made aware of patient's request. Both patient and spouse made aware that first facility with open bed will be considered. Patient aware and agreeable. P: Anticipate transfer to higher level of care. CM team to continue to follow. DANNIELLE Arshad Discharge Planning/Care Management Advanced directive, confirm from FAMILY Start: 06/11/18 04:54 Freq: Q24H Status: Active Protocol: Document 06/11/18 04:54 [facility] (Rec: 06/11/18 10:21 [facility] [id number]) Advance Directive, confirm on record Time 10:15 Person contacted patient Copy received No CM Discharge Assessment Start: 06/11/18 15:50 Freq: Status: Active Protocol: Document 06/11/18 15:50 [facility] (Rec: 06/11/18 15:52 [facility] [id number]) Discharge Planning Assessment Assigned Rotary Driller DANNIELLE Arshad Contact Information Janet Lynch (spouse) Advance Directives? No Advance Directives on File No History Provided By Patient Significant Other Prior Living Arrangements House Household Members spouse family children Type of transporation used prior to Drives own vehicle admit Independent with ADL's Yes Is patient alert and oriented? Yes Comment H/O IVDU, current heroin use weekly. Cultures pending. Insurance pending. Discharge Plan Transfer to Higher Level of Care Additional Comment Following closely as medical POC unfolds. Whiteboard Updated in Patient Room with Yes name and ext. # of Rotary Driller Review Status In Process Next Review Type Continued Stay Review
[2018-06-11] MEDS: HYDROCODONE/ACET 5/325 TABLET 1 TAB PO ×2 (16:00→23:51)
[2018-06-11] MEDS: OXYCODONE IR 5 MG TABLET PO (20:36)
[2018-06-11] MEDS: GABAPENTIN 300 MG CAPSULE PO (20:36)
[2018-06-11] MEDS: CALCIUM CARBONATE 500 MG TAB PO (23:40)
[2018-06-12] VITALS (11 sets, daily range): BP systolic 109–125; BP diastolic 43–72; PULSE 106–119; RESP 18–20; TEMP 36.6–38.3; O2SAT 96–100
[2018-06-12] MEDS: VANCOMYCIN 1,000 MG/200 ML FROZ.PIGGY 200 MG IV ×3 (01:28→16:25)
[2018-06-12 01:58] LABS: Urine Amphetamines Positive (Negative); Urine Cocaine Positive (Negative); Urine MDMA Positive (Negative); Urine Methamphetamines Positive (Negative); Urine Morphine/Opi cutoff 2000 Positive (Negative); Urine Phencyclidine Positive (Negative); Urine Tetrahydrocannabinol Positive (Negative)
[2018-06-12 01:59] LABS: Urine Barbiturates Negative (Negative); Urine Benzodiazepines Negative (Negative); Urine Methadone Negative (Negative)
[2018-06-12 02:00] LABS: Urine Oxycodone Positive (Negative); Urine Tricyclic Antidepressant Positive (Negative)
--- NOTE | 2018-06-12 02:11 | PC.NURSE ---
Patient's came to visit at 0110. Patient's was informed of the contact precautions and educated on the necessary PPE doning. The patient complained of severe pain 7/10 with a heart rate from 111-115 at 0100 and appeared restless and grimacing. I entered the room with a second RN Steph Wright at 0120 and the patient was sleeping and snoring but was arousable to voice. I notified JUDD Branham of the patient's status after his had entered the room and she ordered a urine drug toxicology. Urine toxicology collected from the emergency department on admission (see toxicology for results). JUDD Branham was called to view the results of the urine toxicology screen.
[2018-06-12] MEDS: HYDROCODONE/ACET 5/325 TABLET 1 TAB PO ×2 (03:29→08:55)
[2018-06-12] MEDS: KCL 20 MEQ IN NS 1,000 ML 125 MEQ IV ×2 (05:46→14:46)
[2018-06-12 06:44] LABS: Add Manual Diff / Slide Review NO; Basophils Absolute Auto 100 /uL (0-100); Basophils Percent Auto 0.7 % (0-2); Eosinophils Absolute Auto 200 /uL (0-450); Eosinophils Percent Auto 1.1 % (2-4); Hematocrit 28.5 % (41-53); Hemoglobin 9.4 g/dL (13.5-17.5); Lymphocytes Absolute Auto 1400 /uL (1100-4500); Lymphocytes Percent Auto 9.3 % (25-40); Mean Corpuscular HGB Conc 32.9 % (30-36); Mean Corpuscular Hemoglobin 26.9 PG (26-34); Mean Corpuscular Volume 81.7 fL (80-100); Monocytes Absolute Auto 1700 /uL (0-900); Monocytes Percent Auto 10.9 % (3-14); Neutrophils Absolute Auto 11900 /uL (1500-7000); Platelet Count 291 X10^3/uL (150-400); Red Blood Cell Count 3.49 X10^6/uL (4.5-5.9); Red Cell Distribution Width 15.3 % (11.6-14.8); White Blood Cell Count 15.2 X10^3/uL (4.5-11.0)
[2018-06-12 06:49] LABS: Alanine Aminotransferase 25 IU/L (21-72); Albumin 2.2 g/dL (3.5-5.0); Albumin Globulin Ratio 0.7 (1.0-2.8); Alkaline Phosphatase 108 U/L (38-126); Aspartate Aminotransferase 15 IU/L (17-59); BUN Creatinine Ratio 20.8 (6-22); Bilirubin Total 0.7 mg/dL (0.2-1.3); Blood Urea Nitrogen 25 mg/dL (9-20); Calcium 8.1 mg/dL (8.4-10.2); Carbon Dioxide 21 mmol/L (22-32); Chloride 103 mmol/L (98-107); Estimated Glomerular Filt Rate > 60.0 mL/min (>60); Globulin 3.1 g/dL (1.7-4.1); Glucose 105 mg/dL (70-100); HEMOLYSIS < 15 (0-50); Magnesium 2.1 mg/dL (1.6-2.3); Potassium 3.3 mmol/L (3.4-5.1); Sodium 133 mmol/L (137-145); Total Protein 5.3 g/dL (6.3-8.2)
--- NOTE | 2018-06-12 07:26 | P.PN_ITS ---
Subjective Date Patient Seen: 06/12/18 Interval history: Pedro Luis Lynch is a 32-year-old male with a past medical history significant for IV drug use who presented for malaise and found to have MRSA bacteremia and endocarditis. The patient is resting in bed comfortably and in no acute distress. He denies headache, ear pain, rhinitis, sore throat, cough, shortness of breath, chest pain, abdominal pain, nausea, vomiting, fever, chills, dysuria, diarrhea or constipation. He is voiding and eliminating without difficulty. He is up ambulating without assistance. Exam Vital Signs (past 8 hours): - 06/11/18 23:44 06/12/18 00:01 06/12/18 04:00 Temperature 98.1 F Pulse Rate 111 H Respiratory Rate 20 Blood Pressure 117/55 L Pulse Oximetry 100 100 98 06/12/18 05:41 Temperature 97.8 F Pulse Rate 111 H Respiratory Rate 18 Blood Pressure 125/60 Pulse Oximetry 98 Oxygen Delivery Method Room Air Oxygen Flow Rate 0 Narrative Exam Narrative: General: No acute distress, well-developed, well-nourished, appropriately interactive HEENT: Normocephalic, atraumatic. External ears without defect. Pupils equal, round, and reactive to light and accommodation. Anicteric sclerae, moist conjunctivae, and no lid lag. Oropharynx free of erythema and cobble stoning with moist mucosa. Neck: Supple with full range of motion. No jugular venous distension. No bruits. No lymphadenopathy or thyromegaly. Cardiovascular: Regular rate and rhythm without murmurs, rubs, or gallops appreciated Pulmonary: Clear to auscultation bilaterally without crackles, wheezes, or rhonchi. Normal respiratory effort with no use of accessory muscles. Abdomen: Bowel tones present. Soft, nontender, nondistended. No hepatosplenomegaly or masses appreciated. Extremities: No clubbing, cyanosis, or edema. Skin: Normal temperature, turgor, and texture; no rash, ulcers, or subcutaneous nodules appreciated. Neurological: Cranial nerves grossly intact. Normal muscle strength, tone, and bulk. Reflexes, coordination, and sensory function within normal limits. No known gait impairment. Psychiatric: Normal mood and affect. Alert and oriented to person, place, and time. Objective Labs Result Diagrams: 06/12/18 06:10 06/12/18 06:10 Labs: Laboratory Results - last 24 hr 06/10/18 06/10/18 06/11/18 23:08 23:53 06:34 WBC RBC Hgb Hct MCV MCH MCHC RDW Plt Count Neut % (Auto) Lymph % (Auto) [place] % (Auto) Eos % (Auto) Baso % (Auto) Neut # (Auto) Lymph # (Auto) [place] # (Auto) Eos # (Auto) Baso # (Auto) Total Counted 100 Seg Neutrophils % 57.0 Band Neutrophils % 31.0 H Lymphocytes % (Manual) 1.0 L Monocytes % (Manual) 10.0 Eosinophils % (Manual) 1.0 L Neutrophils # (Manual) 9416 H Toxic Granulation Present H Dohle Bodies 2+ H RBC Morphology See below Anisocytosis 1+ H Sodium Potassium Chloride Carbon Dioxide BUN Creatinine Estimated GFR BUN/Creatinine Ratio Glucose Calcium Magnesium Total Bilirubin AST ALT Alkaline Phosphatase Total Protein Albumin Globulin Albumin/Globulin Ratio Procalcitonin Urine Color Urine Appearance Urine pH Ur Specific [place]ountain Urine Protein Urine Glucose (UA) Urine Ketones Urine Occult Blood Urine Nitrate Urine Bilirubin Urine Urobilinogen Ur Leukocyte Esterase Urine RBC Urine WBC Urine Bacteria Ur Culture Indicated? Nasal Screen MRSA (PCR) Urine Opiates Screen Positive H Ur Oxycodone Screen Positive H Urine Methadone Screen Negative Ur Barbiturates Screen Negative U Tricyclic Antidepress Positive H Ur Phencyclidine Scrn Positive H Ur Amphetamines Screen Positive H U Methamphetamines Scrn Positive H Ur MDMA Scrn (Ecstasy) Positive H U Benzodiazepines Scrn Negative Urine Cocaine Screen Positive H U Marijuana (THC) Screen Positive H A. baumannii (PCR) Not detected Cinda albicans (PCR) Not detected C. glabrata (PCR) Not detected C. krusei (PCR) Not detected C. parapsilosis (PCR) Not detected C. tropicalis (PCR) Not detected Enterobacteriac sp PCR Not detected E. cloacae complex PCR Not detected Enterococcus sp PCR Not detected E. coli (PCR) Not detected H. influenzae (PCR) Not detected Klebsiella oxytoca PCR Not detected Klebsiella pneumoniae Not detected List. monocytogenes PCR Not detected N. meningitidis (PCR) Not detected Proteus species (PCR) Not detected Serratia marcescens PCR Not detected Staphylococcus sp PCR Detected H Staph aureus (PCR) Detected H mecA-Methicil Res Gene Detected H Streptococcus sp PCR Not detected Group A Strep (PCR) Not detected Strep agalactiae (PCR) Not detected Strep pneumoniae (PCR) Not detected P. aeruginosa (PCR) Not detected Gissell/B-Vanco Res Genes Not Reportable KPC-Carbap Res Gene PCR Not Reportable 06/11/18 06/11/18 06/11/18 06:34 07:00 11:28 WBC RBC Hgb Hct MCV MCH MCHC RDW Plt Count Neut % (Auto) Lymph % (Auto) [place] % (Auto) Eos % (Auto) Baso % (Auto) Neut # (Auto) Lymph # (Auto) [place] # (Auto) Eos # (Auto) Baso # (Auto) Total Counted Seg Neutrophils % Band Neutrophils % Lymphocytes % (Manual) Monocytes % (Manual) Eosinophils % (Manual) Neutrophils # (Manual) Toxic Granulation Dohle Bodies RBC Morphology Anisocytosis Sodium Potassium Chloride Carbon Dioxide BUN Creatinine Estimated GFR BUN/Creatinine Ratio Glucose Calcium Magnesium Total Bilirubin AST ALT Alkaline Phosphatase Total Protein Albumin Globulin Albumin/Globulin Ratio Procalcitonin 1.88 H Urine Color Yellow Urine Appearance Sl cloudy Urine pH 5.5 Ur Specific Fountain <=1.005 Urine Protein Trace H Urine Glucose (UA) Negative Urine Ketones Negative Urine Occult Blood 1+ H Urine Nitrate Negative Urine Bilirubin Negative Urine Urobilinogen 1.0 Ur Leukocyte Esterase Negative Urine RBC 1-5/hpf Urine WBC 0-1/hpf Urine Bacteria Moderate (10-30) H Ur Culture Indicated? Specimen cultured Nasal Screen MRSA (PCR) Positive for mrsa H Urine Opiates Screen Ur Oxycodone Screen Urine Methadone Screen Ur Barbiturates Screen U Tricyclic Antidepress Ur Phencyclidine Scrn Ur Amphetamines Screen U Methamphetamines Scrn Ur MDMA Scrn (Ecstasy) U Benzodiazepines Scrn Urine Cocaine Screen U Marijuana (THC) Screen A. baumannii (PCR) Cinda albicans (PCR) C. glabrata (PCR) C. krusei (PCR) C. parapsilosis (PCR) C. tropicalis (PCR) Enterobacteriac sp PCR E. cloacae complex PCR Enterococcus sp PCR E. coli (PCR) H. influenzae (PCR) Klebsiella oxytoca PCR Klebsiella pneumoniae List. monocytogenes PCR N. meningitidis (PCR) Proteus species (PCR) Serratia marcescens PCR Staphylococcus sp PCR Staph aureus (PCR) mecA-Methicil Res Gene Streptococcus sp PCR Group A Strep (PCR) Strep agalactiae (PCR) Strep pneumoniae (PCR) P. aeruginosa (PCR) Gissell/B-Vanco Res Genes KPC-Carbap Res Gene PCR 06/12/18 06/12/18 06/12/18 06:10 06:10 06:10 WBC 15.2 H RBC 3.49 L Hgb 9.4 L Hct 28.5 L MCV 81.7 MCH 26.9 MCHC 32.9 RDW 15.3 H Plt Count 291 Neut % (Auto) 78.0 H Lymph % (Auto) 9.3 L [place] % (Auto) 10.9 Eos % (Auto) 1.1 L Baso % (Auto) 0.7 Neut # (Auto) 25224 H Lymph # (Auto) 1400 [place] # (Auto) 1700 H Eos # (Auto) 200 Baso # (Auto) 100 Total Counted Seg Neutrophils % Band Neutrophils % Lymphocytes % (Manual) Monocytes % (Manual) Eosinophils % (Manual) Neutrophils # (Manual) Toxic Granulation Dohle Bodies RBC Morphology Anisocytosis Sodium 133 L Potassium 3.3 L Chloride 103 Carbon Dioxide 21 L BUN 25 H Creatinine 1.20 Estimated GFR > 60.0 BUN/Creatinine Ratio 20.8 Glucose 105 H Calcium 8.1 L Magnesium 2.1 Total Bilirubin 0.7 AST 15 L ALT 25 Alkaline Phosphatase 108 Total Protein 5.3 L Albumin 2.2 L Globulin 3.1 Albumin/Globulin Ratio 0.7 L Procalcitonin 1.30 H Urine Color Urine Appearance Urine pH Ur Specific [place] Urine Protein Urine Glucose (UA) Urine Ketones Urine Occult Blood Urine Nitrate Urine Bilirubin Urine Urobilinogen Ur Leukocyte Esterase Urine RBC Urine WBC Urine Bacteria Ur Culture Indicated? Nasal Screen MRSA (PCR) Urine Opiates Screen Ur Oxycodone Screen Urine Methadone Screen Ur Barbiturates Screen U Tricyclic Antidepress Ur Phencyclidine Scrn Ur Amphetamines Screen U Methamphetamines Scrn Ur MDMA Scrn (Ecstasy) U Benzodiazepines Scrn Urine Cocaine Screen U Marijuana (THC) Screen A. baumannii (PCR) Cinda albicans (PCR) C. glabrata (PCR) C. krusei (PCR) C. parapsilosis (PCR) C. tropicalis (PCR) Enterobacteriac sp PCR E. cloacae complex PCR Enterococcus sp PCR E. coli (PCR) H. influenzae (PCR) Klebsiella oxytoca PCR Klebsiella pneumoniae List. monocytogenes PCR N. meningitidis (PCR) Proteus species (PCR) Serratia marcescens PCR Staphylococcus sp PCR Staph aureus (PCR) mecA-Methicil Res Gene Streptococcus sp PCR Group A Strep (PCR) Strep agalactiae (PCR) Strep pneumoniae (PCR) P. aeruginosa (PCR) Gissell/B-Vanco Res Genes KPC-Carbap Res Gene PCR Assessment & Plan Assessment & Plan narrative: Pedro Luis Lynch is a 32-year-old male with a past medical history significant for IV drug use who presented for malaise and found to have MRSA bacteremia and endocarditis. 1. MRSA bacteremia and endocarditis, present on admission. Active. 2. Acute kidney injury, present on admission. -Baseline creatinine 0.8. Creatinine 1.9. - 3. Acute abdominal pain / flank pain, present on admission no leukocytosis or lactate elevation - CT A/P w/o contrast Elevated inflammatory markers, ESR 40 CRP 39 PCT 2.39 DDx: endocarditis, acute glomerulonephritis, vasculitis Risk factors: IV drug user, recent surgical procedure, - blood cultures, troponin, UA - obtain UA, to evaluate for hematuria, proteinuria, RBC casts or pyuria given SHANNON / degree of renal involvement - EKG Stat - echo, may need a ANGELA to assess for vegetation - chest x-ray pending 4. Hypovolemia Na 132 Cl 92 - Received IVF bolus per sepsis protocol in the ED - resume IV fluids, NS w/ 20 KCL at 125 ml/hr - replete e-lyte deficiencies - CMP this am, BMP at noon 5. Normocytic Normochromic Anemia - Trend Hgb - Repeat CBC this morning 6. IV drug abuse, present on admission. Active. Quality VTE Deep Vein Thrombosis/Pulmonary Embolism Present on Admission: No
[2018-06-12] MEDS: HEPARIN 5,000 UNIT/ML VIAL 5000 UNIT SUBCUT (08:56)
[2018-06-12 09:32] LABS: Vancomycin Trough 17.5 ug/mL (10-20)
--- NOTE | 2018-06-12 09:52 | CM.DPC ---
DCP Cont: Per MD and RN, possible pt use of illegal drugs last night brought in by a visitor and plan for staff discussion with pt regarding the policy of drug use in the hospital and possible need to restrict visitors if pt not following hospital policy. Per , continuing to attempt to transfer pt to for likely Infectious Disease, Cardiology, and Ortho needs. Pt currently with IV-Abx and not safe for d/c to the community at this time. Plan: SW to follow closely to determine if pt can be successfully transferred for higher level of care. DANNIELLE Archuleta
[2018-06-12] MEDS: VANCOMYCIN TROUGH 1 REQUEST MISC (10:03)
[2018-06-12] MEDS: OXYCODONE IR 5 MG TABLET 10 MG PO ×3 (10:50→18:48)
[2018-06-12] MEDS: CEFEPIME 2 GM in SODIUM CHLORIDE 0.9% 100 ML 200 ML IV (12:03)
[2018-06-12] MEDS: CALCIUM CARBONATE 500 MG TAB PO (12:04)
--- NOTE | 2018-06-12 15:33 | PC.NURSE ---
Pt and his had been suspected of injecting street drugs last night by NOC shift RN's. At approx. 0800 this morning, a small, fresh puncture spot was visualized by this nurse, in between patient's left thumb and first finger. When asked Where did this come from? Pt replied I don't know. Pt's was sleeping deeply in a highly relaxed state in the bedside chair at this time. Pt has been receptive to a conversation about not having visitors sneak in street drugs for his use. Concern for his safety and health were expressed by this nurse with nursing assoc, Giulia in attendance. He was told he is very sick and could become sicker if he used unknown substances. Pt agreed to participate in a partnership with nursing staff to ensure he had safe drug administration and pain control instead of resorting to street drugs. His was also asked not to bring illegal substances into the hospital or use them while visiting/staying with this patient. Patient was told that nursing would like to keep the door to his room open to keep him honest and safe. He agreed.
--- NOTE | 2018-06-12 15:41 | P.DS_ITS ---
History of Present Illness Date Patient Seen: 06/11/18 Chief complaint: Body hurts,lwr back/kidney pain,thinks infection Narrative: Written by Eleazar WHALEY: The patient is a 32-year-old male who presented to the ED out of concern for generalized malaise, myalgia and fever. Symptom onset is sudden, initially noted 5-6 days ago, progressively worsening. At that time developed sudden onset of fever and generalized body aches. Fever has been constant, in the 100-102 range. Patient has been treating febrile state with OTC Aleve 2 tablets every 4-6 hour. Additional symptoms include: right flank pain, joint inflammation (particularly fingers,toes,knees), and pleurisy. Inflammatory / erythema localized to distal extremities. Left knee with a non-tender lesion. Denies chest pain; but notes pleurisy. No dizziness, lightheadedness, or syncopal events. No hemoptysis. Urine output is decreased and concentrated. Notes constipation and right flank pain. No recent URI illness, strep pain, or GI symptoms. no trauma to the abdomen or torso. Patient is known to have a history of IV drug use. Methamphetamine (infrequently) and heroin. Last injected used 37 days ago. Currently continues to use recreational substances via inhalation route. Last use 1 week ago , heroin, proximally 2 gm. patient reports being on Suboxone, but unable to provide dose. Patient was hospitalized 04/26 through 04/30, for a deep abscess in the left antecubital region. Required irrigation and debridement on 04/26/[address] Wilkes. Postoperatively started on vancomycin. Culture results revealed growth of Strep mitis / Strep oralis. Sensitive to all antibiotics except erythromycin and tetracycline. Patient was treated with a 3 day course of IV vancomycin. On day 4 (day of discharged) was changed to oral amoxicillin. Instructed to take 500 mg QID for 15 days. Finished 13 of 15 days. PMH: IV drug use, polysubstance abuse, left anticubital abscess, h/o bacteremia PSH: I/D of antecubital abscess ED Work-UP WBC 10.4 HGB 11.1 PLT 177 NA 129 K 3.1 CL 92 CA 8.5 ALB 3.2 CO2 23 BUN 32 CR 1.8 AST 24 ALT 36 Alk Phos 133 Lipase < 10 Lactate 1.0 PCT 2.38 ESR 40 CRP 39 influnza A/B negative UA + nitrite (communicated by ED physician, unable to verify in record) Discharge Providers Date of admission: 06/11/18 01:20 Discharge Date: 06/12/18 Consults: 06/11/18 04:53 Consult to Skein [facility] Dyer Helper Routine Comment: Discharge provider: Ninoska Patel DO Summary Hospital Course: Pedro Luis Lynch is a 32-year-old male with a past medical history significant for IV drug use who presented for malaise and found to have MRSA bacteremia and endocarditis. 1. MRSA bacteremia and endocarditis, present on admission. Active. -4:4 blood cultures positive for MRSA on 06/10. Continued to repeat blood cultures daily and continue to be positive with todays pending. -Continue vancomycin 1 g q.8 hours with dosing per pharmacy. Vanc trough pending. Continue cefepime 2 g q.12 hours. -continue to trend infectious markers including: WBC trending up from 10.7 to 15.2 today. -TTE did not demonstrate any apparent valvular vegetations. Tricuspid leaflets are mildly thickened but opened well without any obvious tricuspid valve vegetation. There is mild tricuspid regurgitation but no othersignificant valvular heart disease. -Transferring for higher level of care for cardiology (ANGELA), infectious disease, and potentially Ortho. Patient in stable condition. 2. Multiple site joint pain including right flank/back, left shoulder glenohumoral/AC joint, left foot MTP, present on admission. Active. -Concern for multiple abscesses including iliopsoas, AC joint, renal ect. -CT abdomen pelvis without contrast was performed which demonstrated multiple pulmonary nodules, mild retroperitoneal and bilateral inguinal lymphadenopathy. No renal stone or hydronephrosis. -Plan for CT abdomen and pelvis with contrast and CT thoracic and lumbar spine once SHANNON improves. -Elevated inflammatory markers, ESR 40 CRP 39 PCT 2.39 3. Acute kidney injury, present on admission. Resolving. -Concern for glomerulonephritis versus renal abscess. -Baseline creatinine 0.8. Creatinine 1.9. Creatinine today 1.2. -Avoided nephrotoxic agents. -Continued IV fluids with normal saline with 20 mEq KCl at 125 mL/hr. 4. Hypovolemia, present on admission. Improved. -Inital sodium 132 Cl 92 -Received IVF bolus per sepsis protocol in the ED. Continued IV fluids with normal saline with 20 mEq KCl at 125 mL/hr. 5. Normocytic normochromic anemia, present on admission. Stable. -Initial hemoglobin 11.1. Trended down but likely hemodilutional due to IV fluid administration. -Continue to monitor CBC daily. 6. IV drug abuse, present on admission. Active. -Patient is adamant that he is going to quit using cold turkey. Concern that patient may try using while in hospital and have limited visitors and discussed this with patient in detail. -Continue oxycodone 5-10 mg every 3 hr as needed for severe pain. Status at Discharge Functional status at discharge: independent ambulation Overall status at discharge: patient is not back to baseline Exam Vital Signs (past 8 hours): - 06/12/18 09:00 06/12/18 13:00 Temperature 98.3 F 97.9 F Pulse Rate 106 H 110 H Respiratory Rate 19 20 Blood Pressure 109/72 111/70 Pulse Oximetry 99 99 Oxygen Delivery Method Room Air Oxygen Flow Rate 0 Narrative Exam Narrative: General: Young male lying in bed and in no acute distress, appears uncomfortable, well-developed, well-nourished, appropriately interactive. HEENT: Normocephalic, atraumatic. External ears without defect. Pupils equal, round, and reactive to light and accommodation. Anicteric sclerae, moist conjunctivae, and no lid lag. Oropharynx free of erythema and cobble stoning with moist mucosa. Collapsed nasal ridge. Neck: Supple with full range of motion. No jugular venous distension. No bruits. No lymphadenopathy or thyromegaly. Cardiovascular: Regular rhythm, tachycardic, without murmurs, rubs, or gallops appreciated. Pulmonary: Clear to auscultation bilaterally without crackles, wheezes, or rhonchi. Normal respiratory effort with no use of accessory muscles. Abdomen: Soft, bowel sounds present, nontender, nondistended. No hepatosplenomegaly or masses appreciated. Extremities: No clubbing or cyanosis. Mild bipedal edema. Skin: Several erythematous areas including right hand MCP and left foot MTP, tenderness without erythema of left shoulder joint specifically over AC and glenohumeral joint, right flank/back tenderness to palpation. No fluctuance of any of these areas or obvious abscess. Neurological: Cranial nerves grossly intact. Normal muscle strength, tone, and bulk. Reflexes, coordination, and sensory function within normal limits. No known gait impairment. Psychiatric: Depressed mood and flat affect. Emotionally labile. Alert and oriented to person, place, and time. Objective Labs Result Diagrams: 06/12/18 06:10 06/12/18 06:10 Labs: Laboratory Results - last 24 hr 06/10/18 06/12/18 06/12/18 23:08 06:10 06:10 WBC 15.2 H RBC 3.49 L Hgb 9.4 L Hct 28.5 L MCV 81.7 MCH 26.9 MCHC 32.9 RDW 15.3 H Plt Count 291 Neut % (Auto) 78.0 H Lymph % (Auto) 9.3 L [place] % (Auto) 10.9 Eos % (Auto) 1.1 L Baso % (Auto) 0.7 Neut # (Auto) 99544 H Lymph # (Auto) 1400 [place] # (Auto) 1700 H Eos # (Auto) 200 Baso # (Auto) 100 Sodium Potassium Chloride Carbon Dioxide BUN Creatinine Estimated GFR BUN/Creatinine Ratio Glucose Calcium Magnesium Total Bilirubin AST ALT Alkaline Phosphatase Total Protein Albumin Globulin Albumin/Globulin Ratio Procalcitonin 1.30 H Vancomycin Trough Urine Opiates Screen Positive H Ur Oxycodone Screen Positive H Urine Methadone Screen Negative Ur Barbiturates Screen Negative U Tricyclic Antidepress Positive H Ur Phencyclidine Scrn Positive H Ur Amphetamines Screen Positive H U Methamphetamines Scrn Positive H Ur MDMA Scrn (Ecstasy) Positive H U Benzodiazepines Scrn Negative Urine Cocaine Screen Positive H U Marijuana (THC) Screen Positive H 06/12/18 06/12/18 06:10 08:45 WBC RBC Hgb Hct MCV MCH MCHC RDW Plt Count Neut % (Auto) Lymph % (Auto) [place] % (Auto) Eos % (Auto) Baso % (Auto) Neut # (Auto) Lymph # (Auto) [place] # (Auto) Eos # (Auto) Baso # (Auto) Sodium 133 L Potassium 3.3 L Chloride 103 Carbon Dioxide 21 L BUN 25 H Creatinine 1.20 Estimated GFR > 60.0 BUN/Creatinine Ratio 20.8 Glucose 105 H Calcium 8.1 L Magnesium 2.1 Total Bilirubin 0.7 AST 15 L ALT 25 Alkaline Phosphatase 108 Total Protein 5.3 L Albumin 2.2 L Globulin 3.1 Albumin/Globulin Ratio 0.7 L Procalcitonin Vancomycin Trough 17.5 Urine Opiates Screen Ur Oxycodone Screen Urine Methadone Screen Ur Barbiturates Screen U Tricyclic Antidepress Ur Phencyclidine Scrn Ur Amphetamines Screen U Methamphetamines Scrn Ur MDMA Scrn (Ecstasy) U Benzodiazepines Scrn Urine Cocaine Screen U Marijuana (THC) Screen Discharge Plan Discharge Plan Patient Disposition: [facility] Transfer to: [facility] Under care of provider: Dr. Perkins of Cardiology Discharge Med Rec/Prescriptions Prescriptions: No Action No Known Home Medications RF: 0 Discharge Health Status Multidrug resistant organism: MRSA Provider Discharge Instructions Diet: Low-fat, Low-sodium and Low-cholesterol Discharge Data Attending Provider: Eleazar Branham Admit Date/Time: 06/11/18 01:20 Quality VTE Deep Vein Thrombosis/Pulmonary Embolism Present on Admission: No
[2018-06-12] MEDS: ACETAMINOPHEN 325 MG TABLET 650 MG PO (16:25)
--- NOTE | 2018-06-12 18:22 | PC.NURSE ---
here to visit at this time. Report has been called in to [facility] facility to accepting RN. Patient has eaten dinner and asked for juice and ice. Call light is in reach, will continue to monitor.
--- NOTE | 2018-06-12 19:39 | PC.NURSE ---
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 Patient is A&Ox4, all belongings packed up and given to patient's . All discharge paperwork given to transport staff and report given to them as well by this RN. Patient was given two 5 mg tablets of oxycodone IR as ordered for 8/10 pain rating.
== END 2018-06-12 19:00 | disposition short-term general hospital (02) | DRG 193 ==
LOC: ED 06-11 01:03 → AC 06-11 01:21
PROVIDERS: Internal Medicine; Admitting Provider Nurse Practitioner Gerontology; Emergency Provider Emergency Medicine; Visit Provider Nurse Practitioner Gerontology
DX: I33.0 Acute and subacute infective endocarditis (principal); N17.9 Acute kidney failure, unspecified; E86.1 Hypovolemia; F15.10 Other stimulant abuse, uncomplicated; F11.10 Opioid abuse, uncomplicated; B95.62 Methicillin resistant Staphylococcus aureus infection as the cause of diseases classified elsewhere; R78.81 Bacteremia; D64.9 Anemia, unspecified; M25.512 Pain in left shoulder; M54.9 Dorsalgia, unspecified; M79.672 Pain in left foot
CPT/HCPCS: 36415; 36591; 71045; 74176; 80053; 80202; 80305; 81001; 81003; 81015; 83605; 83690; 83735; 84145; 84484; 85025; 85610; 85651; 85730; 86140; 87040; 87077; 87086; 87147; 87150; 87186; 87205; 87400; 87797; 93005; 93306; 96361; 96365; 99284; 99285; J0692; J1170; J1644; J3370